=== PATIENT | female | born 1980 | race Caucasian/White ===

== ENCOUNTER 2016-05-04 07:47 | Emergency (ER) | payer OTHER ==
[~2016-05-04] VITALS: Ht 162.6 cm; Wt 113.4 kg
[~2016-05-04 07:47] MED LIST: ABILIFY10 MG PO; ABILIFY20 MG PO; ABILIFY30 MG PO; ATORVASTATIN CA20 MG PO; CELEXA20 MG PO; CITALOPRAM20 MG PO; DEPAKOTE ER500 MG PO; DIVALPROEX SOD250 M1 PO; Divalproex Sodium PO; LIPITOR40 MG PO; MACROBID100 M1 PO; MAG-OX400 MG PO; QUETIAPINE FUM100 M1 PO; SYNTHROID0.1 M1 PO; SYNTHROID0.137 MG PO
--- NOTE | 2016-05-04 07:47 | NUR ---
José galloway in ED - 05/04/16 at [address] BERG EVALUATING PT AT BEDSIDE
[2016-05-04 07:48] VITALS: BP 152/75
--- NOTE | 2016-05-04 07:49 | NUR ---
Note undone in EDM - 05/04/16 at 0951 by MED1 35 YO FEMALE BIB EMS FROM HOME FOR HEADACHE AND HIGH BLOOD PRESSURE. PT STATES HAD SEIZURE 1 TIME AND FELL DOWN ON HER KNEES BEFORE CALLED EMS .PT DENIES N/V/D; SKIN IS PINK/WARM/DRY; AAOX4 WITH EVEN AND UNSTEADY GAIT; LUNGS CLEAR BL; HR TACHECARDIA; PT DENIES ANY FEVER, CP, SOB, OR COUGH AT THIS TIME; PATIENT STATES PAIN OF 10/10 AT THIS TIME; PATIENT POSITIONED FOR COMFORT; HOB ELEVATED; BEDRAILS UP X2; BED DOWN. ER MD MADE AWARE OF PT STATUS.
--- NOTE | 2016-05-04 07:49 | NUR ---
Note undone in EDM - 05/04/16 at 0913 by MED1 35 YO FEMALE BIB EMS FROM HOME FOR HEADACHE AND HIGH BLOOD PRESSURE. PT STATES HAD SEIZURE 1 TIME AND FELL DOWN ON HER KNEES BEFORE CALLED EMS .PT DENIES N/V/D; SKIN IS PINK/WARM/DRY; AAOX4 WITH EVEN AND UNSTEADY GAIT; LUNGS CLEAR BL; HR TACHYCARDIA; PT DENIES ANY FEVER, CP, SOB, OR COUGH AT THIS TIME; PATIENT STATES PAIN OF 10/10 AT THIS TIME; PATIENT POSITIONED FOR COMFORT; HOB ELEVATED; BEDRAILS UP X2; BED DOWN. ER MD MADE AWARE OF PT STATUS.
[2016-05-04] MEDS ORDERED: KETOROLAC 60 MG/2 ML VIAL IM ONE (07:50)
[2016-05-04] MEDS ORDERED: LORazepam 2 MG/ML VIAL IM ONE (07:50)
--- NOTE | 2016-05-04 07:50 | NUR ---
DR BERG EVALUATING PT AT BEDSIDE
--- NOTE | 2016-05-04 07:59 | NUR ---
X RAY AT BEDSIDE
--- NOTE | 2016-05-04 08:04 | NUR ---
LAB AT BEDSIDE
--- NOTE | 2016-05-04 08:04 | NUR ---
PT REFUSED OXYGEN: PULSE OX 96%
--- NOTE | 2016-05-04 08:07 | NUR ---
PT REFUSED CT . NURSING HOME MANAGER NOTIFIED MD BERG. PT AAO X3 ,RESTING ,; WILL CONTINUE TO MONITOR
--- NOTE | 2016-05-04 08:30 | NUR ---
PT C/O " I FEEL HOT AT R FACE". TEMP 98.7
--- NOTE | 2016-05-04 09:09 | NUR ---
Patient appears to be resting comfortably in bed. Respirations even and unlabored. WILL CONTINUE TO MONITOR AT THIS TIME
[2016-05-04] MEDS ORDERED: DIVALPROEX 500 MG TABEC PO ONE (10:05)
--- NOTE | 2016-05-04 11:22 | NUR ---
Patient discharged with v/s stable. Written and verbal after care instructions given and explained. Patient verbalized understanding. Wheel Chair Assisted with by parent. All questions addressed prior to discharge. Advised to follow up with PMD.
[2016-05-04 12:22] VITALS: BP 126/61
== END 2016-05-04 11:22 | disposition home or self-care (01) ==
LOC: MED 07:47
DX: G40.909 Epilepsy, unspecified, not intractable, without status epilepticus (principal); G81.91 Hemiplegia, unspecified affecting right dominant side; R51 Headache; Z86.73 Personal history of transient ischemic attack (TIA), and cerebral infarction without residual deficits
CPT/HCPCS: 36415; 71010; 80053; 84484; 85025; 85610; 85730; 93005; 96372; 99285; J1885; J2060; Q0092

== ENCOUNTER 2016-05-11 15:28 | Emergency (ER) | payer OTHER ==
[~2016-05-11] VITALS: Ht 162.6 cm; Wt 113.4 kg
[2016-05-11 15:44] VITALS: BP 127/68
[2016-05-11] MEDS ORDERED: ACETAMINOPHEN 325 MG TAB PO ONE (15:55)
--- NOTE | 2016-05-11 15:57 | NUR ---
patient brought in by family, patient states she suddenly started having pain in her left leg, left arm, and left foot. TEA BAG PACKER Kat has assessed the patient and placed orders for xray. Patient states she wants to stay in her wheel chair and does not want to lay in gurney.
--- NOTE | 2016-05-11 16:08 | NUR ---
patient transported to xray via wheel chair by civil drafting technician
--- NOTE | 2016-05-11 16:38 | NUR ---
patient returned from xray via wheel chair, she wishes to remain in her wheel chair, family at her side, patient sitting comfortably, no visable distress.
[2016-05-11 17:39] VITALS: BP 144/82
--- NOTE | 2016-05-11 17:40 | NUR ---
Patient discharged with v/s stable. Written and verbal after care instructions given and explained. Patient verbalized understanding. Wheel Chair Assisted with by caregiver. All questions addressed prior to discharge. Advised to follow up with PMD.
== END 2016-05-11 18:09 | disposition home or self-care (01) ==
LOC: MED 15:29
DX: S93.402A Sprain of unspecified ligament of left ankle, initial encounter (principal); S63.502A Unspecified sprain of left wrist, initial encounter; W01.0XXA Fall on same level from slipping, tripping and stumbling without subsequent striking against object, initial encounter; Y93.89 Activity, other specified; Y92.002 Bathroom of unspecified non-institutional (private) residence as the place of occurrence of the external cause; Y99.8 Other external cause status

== ENCOUNTER 2016-09-29 02:50 | Emergency (ER) | payer MEDICAID, OTHER ==
[~2016-09-29] VITALS: Ht 165.1 cm; Wt 108.9 kg
[~2016-09-29 02:50] MED LIST changes: -ABILIFY10 MG PO; -ABILIFY20 MG PO; -ABILIFY30 MG PO; +ARIP10TA28 PO; +ATOR20TA40 PO; -ATORVASTATIN CA20 MG PO; -CELEXA20 MG PO; +CITA20TA15 PO; -CITALOPRAM20 MG PO; -DEPAKOTE ER500 MG PO; -DIVALPROEX SOD250 M1 PO; -LIPITOR40 MG PO; -MACROBID100 M1 PO; -MAG-OX400 MG PO; +MAG400 PO; +QUET100T44 PO; -QUETIAPINE FUM100 M1 PO; +SYN.1 PO; -SYNTHROID0.1 M1 PO; -SYNTHROID0.137 MG PO
[2016-09-29 03:04] VITALS: BP 142/78
--- NOTE | 2016-09-29 04:01 | NUR ---
PT TAKEN TO BED 4
--- NOTE | 2016-09-29 04:22 | NUR ---
36 Y/O F biba for generalized weakness, dizziness. PT STATES SHE WAS SEEN AT [facility] TODAY. MEDS: ABILIFY, CITALOPRAM, DIVALPROEX ER, ATORVASTATIN, QUETIAPINE, LEVOTHYROXIN, ASA.
--- NOTE | 2016-09-29 04:33 | NUR ---
Blood for labwork drawn
[2016-09-29 04:54] LABS: BASOPHILS # (AUTO) 0.2 K/uL (0.00-0.22); BASOPHILS % (AUTO) 1.5 % (0.0-2.0); EOSINOPHILS # (AUTO) 0.1 K/uL (0-0.4); HEMATOCRIT 39.1 % (36-48); HEMOGLOBIN 12.6 g/dL (12.0-16.0); LYMPHOCYTES # (AUTO) 3.3 K/uL (2.5-16.5); LYMPHOCYTES % (AUTO) 31.6 % (20.5-51.1); MEAN CORPUSCULAR HEMOGLOBIN 28 pg (27-31); MEAN CORPUSCULAR HGB CONC 32 g/dL (33-37); MEAN CORPUSCULAR VOLUME 88 fL (80-94); MONOCYTES # (AUTO) 0.3 K/uL (0.8-1.0); MONOCYTES % (AUTO) 2.5 % (1.7-9.3); NEUTROPHILS # (AUTO) 6.4 K/uL (1.8-7.7); NEUTROPHILS % (AUTO) 63.4 % (42.2-75.2); PLATELET COUNT (AUTO) 182 K/uL (140-450); RED BLOOD CELL COUNT(AUTO) 4.47 MIL/uL (4.20-5.40); RED CELL DISTRIBUTION WIDTH 13.5 % (11.6-13.7); WHITE BLOOD COUNT (AUTO) 10.3 K/uL (4.8-10.8)
[2016-09-29 05:09] LABS: ANION GAP 12.2 (8-16); CALCIUM 9.1 mg/dL (8.5-10.1); CARBON DIOXIDE 31.7 mmol/L (21-32); CREATININE 0.8 mg/dL (0.6-1.3); POTASSIUM 3.9 mmol/L (3.5-5.1)
[2016-09-29 05:26] LABS: ALBUMIN 3.6 g/dL (3.4-5.0); THYROID STIMULATING HORMONE 7.49 uIU/mL (0.34-3.74); TOTAL BILIRUBIN 0.3 mg/dL (0.0-1.0); TOTAL PROTEIN, SERUM 7.8 g/dL (6.4-8.2)
--- NOTE | 2016-09-29 05:50 | NUR ---
PT SENT TO [facility] VIA W/C WITH EMT. UA DONE.
--- NOTE | 2016-09-29 05:55 | NUR ---
UA DONE, SENT TO LAB AT 0600
[2016-09-29 06:15] LABS: BILIRUBIN,URINE NEGATIVE (NEGATIVE); BLOOD, URINE NEGATIVE (NEGATIVE); COLOR,URINE YELLOW (YELLOW); LEUKOCYTE ESTERASE ,URINE TRACE (NEGATIVE); NITRITE, URINE NEGATIVE (NEGATIVE); PROTEIN,URINE NEGATIVE (NEGATIVE); UGLUCOSE NEGATIVE (NEGATIVE); UROBILINOGEN,URINE 0.2 EU/dL (0.2 - 1)
--- NOTE | 2016-09-29 06:23 | NUR ---
Dr. Marroquin evaluating patient at bedside.
--- NOTE | 2016-09-29 06:35 | NUR ---
I CALLED PT MOM TO PICK HER UP. ETA 07:30-08:00AM. ER MD AND PT NOTIFIED
--- NOTE | 2016-09-29 06:50 | NUR ---
PT SLEEPING IN BED, ON MONITOR, VSS. NO S/S OF DISTRESS NOTED. FAMILY HAS BEING CALLED TO PICK PT UP, D/T UPCOMING DC.
[2016-09-29 07:06] LABS: APPEARANCE,URINE HAZY (CLEAR)
[2016-09-29 07:07] LABS: BACTERIA,URINE None Seen /HPF (None Seen); RBC,URINE NONE SEEN /HPF (0-5)
--- NOTE | 2016-09-29 07:13 | NUR ---
Pt report given to EMI SEO. Transfer of care at this time.
[2016-09-29 07:41] VITALS: BP 114/73
--- NOTE | 2016-09-29 07:41 | NUR ---
Patient discharged with v/s stable. Written and verbal after care instructions given and explained. Patient verbalized understanding. Wheel Chair Assisted with to car. All questions addressed prior to discharge. Advised to follow up with PMD.
== END 2016-09-29 07:41 | disposition home or self-care (01) ==
LOC: MED 02:50
DX: E03.9 Hypothyroidism, unspecified (principal)
CPT/HCPCS: 36415; 80053; 81001; 81025; 84443; 85025; 87086; 99284

== ENCOUNTER 2017-04-28 18:35 | Emergency (ER) | payer MEDICAID, OTHER ==
[~2017-04-28] VITALS: Ht 162.6 cm; Wt 120.2 kg
[~2017-04-28 18:35] MED LIST changes: +ABI10 PO; -ARIP10TA28 PO
[2017-04-28 19:00] VITALS: BP 148/72
--- NOTE | 2017-04-28 20:23 | NUR ---
José galloway in ED - 04/28/17 at 2040 by MEDRJJ PATIENT LEFT WITHOUT BEING SEEN BY DR. RAMIREZ. NO FURTHER CARE PROVIDED FOR PATIENT.
--- NOTE | 2017-04-28 20:32 | NUR ---
TO MARIO RODRIGUEZ
--- NOTE | 2017-04-28 20:35 | NUR ---
PT BIB FAMILY C/O RIGHT EAR PAIN AND CHILLS X2 DAYS; PT HAS SEEN PMD X2 DAYS AGO AND RX'D AMOXCILLIN SHE STATES SHE IS TAKING. ER MD TO CANDICE. HX CVA, ADD
[2017-04-28 21:50] VITALS: BP 133/68
--- NOTE | 2017-04-28 21:50 | NUR ---
Patient discharged with v/s stable. Written and verbal after care instructions given and explained. Patient alert, oriented and verbalized understanding of instructions. Wheel Chair Assisted with by parent. All questions addressed prior to discharge. ID band removed. Patient advised to follow up with PMD. Rx of CIPROFLOXACIN 0.2% BID given. Patient educated on indication of medication including possible reaction and side effects. Opportunity to ask questions provided and answered.
--- NOTE | 2017-04-28 22:06 | NUR ---
JAVI HOPSON CALLED PT HOME FOR RIDE. NA LVM. PT NOTIFED
--- NOTE | 2017-04-28 22:24 | NUR ---
CALLED PT MOM- PT WAS ALREADY PICKED UP AND AT HOME NOW
== END 2017-04-28 21:50 | disposition home or self-care (01) ==
LOC: MED 18:35
DX: H66.91 Otitis media, unspecified, right ear (principal); H60.91 Unspecified otitis externa, right ear; Z86.73 Personal history of transient ischemic attack (TIA), and cerebral infarction without residual deficits; I10 Essential (primary) hypertension
CPT/HCPCS: 99283

== ENCOUNTER 2017-05-05 17:39 | Emergency (ER) | payer OTHER ==
[~2017-05-05] VITALS: Ht 170.2 cm; Wt 90.7 kg
[2017-05-05 17:43] VITALS: BP 175/90
--- NOTE | 2017-05-05 19:47 | NUR ---
PT TAKEN TO BED 3
--- NOTE | 2017-05-05 19:50 | NUR ---
PATIENT IS A 36 Y/O FEMALE BIB [facility] WHO PRESENTS TO ED C/O LEFT KNEE PAIN. PT STATES, "MY KNEE HURTS." PT REPORTS 10/10 ACHING LEFT KNEE PAIN. PT DENIES CP, SOB, N/V/D. NOTED NO OBVIOUS DEFORMITY OR BLEEDING, BIB WHEELCHAIR. PT AAOX4, RR EVEN/UNLABORED. PT REPOSITIONED FOR COMFORT, BED IN LOWEST POSITION. ER MD DR. MARCUS NOTIFIED. WILL CONTINUE TO MONITOR.
[2017-05-05] MEDS ORDERED: KETOROLAC 60 MG/2 ML VIAL IM ONE (22:35)
[2017-05-05 23:14] VITALS: BP 129/60
== END 2017-05-05 23:14 | disposition home or self-care (01) ==
LOC: MED 17:39
DX: S83.92XA Sprain of unspecified site of left knee, initial encounter (principal); I10 Essential (primary) hypertension; E03.9 Hypothyroidism, unspecified; Z86.73 Personal history of transient ischemic attack (TIA), and cerebral infarction without residual deficits; Z79.899 Other long term (current) drug therapy; X58.XXXA Exposure to other specified factors, initial encounter; Y93.89 Activity, other specified; Y92.89 Other specified places as the place of occurrence of the external cause; Y99.8 Other external cause status
CPT/HCPCS: 81002; 81025; 96372; 99283; J1885

== ENCOUNTER 2017-05-11 01:15 | Emergency (ER) | payer OTHER ==
[~2017-05-11] VITALS: Ht 162.6 cm; Wt 114.3 kg
--- NOTE | 2017-05-11 01:15 | NUR ---
KATHY POWERS. TAKEN TO BED 1
--- NOTE | 2017-05-11 01:15 | NUR ---
Dr. Dickens evaluating patient.
[2017-05-11 01:20] VITALS: BP 131/62
[2017-05-11] MEDS ORDERED: KETOROLAC 30 MG/ML VIAL IVP ONE (01:20)
[2017-05-11] MEDS ORDERED: NACL 0.9% 1,000 ML IV ONE (01:20)
[2017-05-11 01:48] LABS: BASOPHILS # (AUTO) 0.1 K/uL (0.00-0.22); BASOPHILS % (AUTO) 1.8 % (0.0-2.0); EOSINOPHILS # (AUTO) 0.2 K/uL (0-0.4); EOSINOPHILS % (AUTO) 2.5 % (0.0-4.0); HEMATOCRIT 36.3 % (36-48); HEMOGLOBIN 11.9 g/dL (12.0-16.0); LYMPHOCYTES # (AUTO) 2.6 K/uL (2.5-16.5); LYMPHOCYTES % (AUTO) 35.5 % (20.5-51.1); MEAN CORPUSCULAR HEMOGLOBIN 29 pg (27-31); MEAN CORPUSCULAR HGB CONC 33 g/dL (33-37); MEAN CORPUSCULAR VOLUME 88 fL (80-94); MONOCYTES # (AUTO) 0.5 K/uL (0.8-1.0); MONOCYTES % (AUTO) 6.2 % (1.7-9.3); NEUTROPHILS # (AUTO) 3.9 K/uL (1.8-7.7); PLATELET COUNT (AUTO) 131 K/uL (140-450); RED BLOOD CELL COUNT(AUTO) 4.12 MIL/uL (4.20-5.40); RED CELL DISTRIBUTION WIDTH 12.8 % (11.6-13.7); WHITE BLOOD COUNT (AUTO) 7.3 K/uL (4.8-10.8)
[2017-05-11 01:58] LABS: ANION GAP 13.1 (8-16); CARBON DIOXIDE 27.8 mmol/L (21-32); CREATININE 0.7 mg/dL (0.6-1.3); POTASSIUM 3.9 mmol/L (3.5-5.1)
[2017-05-11 02:04] LABS: ALBUMIN 3.1 g/dL (3.4-5.0); TOTAL BILIRUBIN 0.3 mg/dL (0.0-1.0)
--- NOTE | 2017-05-11 02:25 | NUR ---
Patient appears to be resting comfortably in bed. Vital Signs within normal limits. Respirations even and unlabored.
--- NOTE | 2017-05-11 02:26 | NUR ---
PT'S CALLING MOM TO PICK HER UP. ETA NOT 30MINS
--- NOTE | 2017-05-11 02:30 | NUR ---
PT STS " I CALLED MY MOM TO PICK ME UP BUT MY MOM SAID SHE WAS SLEEPING RIGHT NOW."
--- NOTE | 2017-05-11 02:42 | NUR ---
EMI WATKINS CALLED PT HOME-LEFT V-MAIL-TO COME EXECUTIVE SEARCH CONSULTANT PT IN ER [facility]
--- NOTE | 2017-05-11 02:50 | NUR ---
IV removed, catheter intact and site benign. Applied folded 4x4 gauze and tape to stop bleeding.
--- NOTE | 2017-05-11 03:00 | NUR ---
Patient discharged with v/s stable. Written and verbal after care instructions given and explained. Patient alert, oriented and verbalized understanding of instructions. Wheel Chair Assisted with to home. All questions addressed prior to discharge. ID band removed. Patient advised to follow up with PMD. Rx of ULTRAM 50MG given. Patient educated on indication of medication including possible reaction and side effects. Opportunity to ask questions provided and answered.
[2017-05-11 03:01] VITALS: BP 122/71
== END 2017-05-11 03:00 | disposition home or self-care (01) ==
LOC: MED 01:15
DX: H92.02 Otalgia, left ear (principal); I10 Essential (primary) hypertension; E03.9 Hypothyroidism, unspecified; Z86.73 Personal history of transient ischemic attack (TIA), and cerebral infarction without residual deficits; Z79.899 Other long term (current) drug therapy
CPT/HCPCS: 36415; 80053; 82948; 85025; 96361; 96374; 99284; J1885; J7030

== ENCOUNTER 2017-05-17 17:56 | Emergency (ER) | payer OTHER ==
[~2017-05-17] VITALS: Ht 162.6 cm; Wt 118.8 kg
[2017-05-17 18:04] VITALS: BP 143/69
--- NOTE | 2017-05-17 18:35 | NUR ---
PATIENT PRESENTS TO ED CAREGIVER BRINGS IN PT FOR RIGHT WRIST PAIN S/P FALL FROM WHEELCHAIR. MILD SWELLING NOTED. PT REPORT MILD NUMBNESS/TINGLING. RADIAL PULSE PRESENT, COLD TO TOUCH. PT ALSO C/O SOB AND RT EYE DRAINAGE, ON EYE DROPS, BUT NOT HELPING. MED HX: STROKE 2009, ADD, SCHIZOPHRENIA RX: ABILIFY, LEVOTHYROXINE; DENIES N/V/D; SKIN IS PINK/WARM/DRY; AAOX4; LUNGS CLEAR BL; HR EVEN AND REGULAR; PT DENIES ANY FEVER, CP, SOB, OR COUGH AT THIS TIME; PATIENT STATES PAIN OF 10/10 AT THIS TIME; VSS; PATIENT POSITIONED FOR COMFORT; ER MD MADE AWARE OF PT STATUS.
--- NOTE | 2017-05-17 19:15 | NUR ---
REPORT GIVEN TO EMI BARRERA FOR CONTINUATION OF CARE
--- NOTE | 2017-05-17 19:45 | NUR ---
DEVEN BRASWELL EVALUATING PATIENT
--- NOTE | 2017-05-17 20:06 | NUR ---
PT READY FOR DISCHARGE, PT HAS NO RIDE AT THIS TIME, CALLED PT'S MOTHER MARISELA THOMSON WHO STATED SHE WILL BE COMING IN 10 MINS.
[2017-05-17 20:19] VITALS: BP 140/69
--- NOTE | 2017-05-17 20:20 | NUR ---
Patient discharged with v/s stable. Written and verbal after care instructions given and explained. Patient alert, oriented and verbalized understanding of instructions. Wheel Chair Assisted with by parent. All questions addressed prior to discharge. ID band removed. Patient advised to follow up with PMD. Rx of MOTRIN given. Patient educated on indication of medication including possible reaction and side effects. Opportunity to ask questions provided and answered.
[2017-06-07] MEDS ORDERED: QUET200T PO (19:17)
[2017-06-07] MEDS ORDERED: ASPI81EC97 PO (19:17)
== END 2017-05-17 20:20 | disposition home or self-care (01) ==
LOC: MED 17:56
DX: M25.531 Pain in right wrist (principal); Z86.73 Personal history of transient ischemic attack (TIA), and cerebral infarction without residual deficits; E11.9 Type 2 diabetes mellitus without complications
CPT/HCPCS: 73110; 99284

== ENCOUNTER 2017-05-17 20:32 | Emergency (ER) | payer OTHER ==
[~2017-05-17] VITALS: Ht 162.6 cm; Wt 118.8 kg
[2017-05-17 20:43] VITALS: BP 87/57
--- NOTE | 2017-05-17 20:47 | NUR ---
PT TAKEN TO BED 11
[2017-05-17] MEDS ORDERED: NACL 0.9% 1,000 ML IV ONE (20:50)
--- NOTE | 2017-05-17 20:50 | NUR ---
PT IS A 36 Y/O F CAME IN W/C/O FALL ON TUESDAY. PT DENIES ANY TRAUMA TO HEAD. PT STATES SHE FELL ON R WRIST, SWELLING NOTED TO R WRIST, NO DEFORMATIES NOTED. PT IS AAOX4. RR EVEN/UNLABORED. PT DENIES ANY LOC. PT STATES SHE HAS HX OF STROKE, SCHIZOPHRENIA, DM, AND HTN. PT DENIES ANY ALLERGIES
--- NOTE | 2017-05-17 21:04 | NUR ---
Dr. Dickens evaluating patient.
[2017-05-17 21:42] LABS: ANION GAP 17.2 (8-16); CARBON DIOXIDE 25.5 mmol/L (21-32); CREATININE 0.8 mg/dL (0.6-1.3); POTASSIUM 3.7 mmol/L (3.5-5.1)
[2017-05-17 21:44] LABS: BASOPHILS # (AUTO) 0.2 K/uL (0.00-0.22); BASOPHILS % (AUTO) 1.7 % (0.0-2.0); EOSINOPHILS # (AUTO) 0.1 K/uL (0-0.4); HEMATOCRIT 39.2 % (36-48); HEMOGLOBIN 12.8 g/dL (12.0-16.0); MEAN CORPUSCULAR HEMOGLOBIN 29 pg (27-31); MEAN CORPUSCULAR HGB CONC 33 g/dL (33-37); MEAN CORPUSCULAR VOLUME 88 fL (80-94); MONOCYTES # (AUTO) 0.4 K/uL (0.8-1.0); MONOCYTES % (AUTO) 3.8 % (1.7-9.3); NEUTROPHILS # (AUTO) 5.9 K/uL (1.8-7.7); NEUTROPHILS % (AUTO) 62.5 % (42.2-75.2); PLATELET COUNT (AUTO) 182 K/uL (140-450); RED BLOOD CELL COUNT(AUTO) 4.46 MIL/uL (4.20-5.40); RED CELL DISTRIBUTION WIDTH 13.1 % (11.6-13.7); WHITE BLOOD COUNT (AUTO) 9.6 K/uL (4.8-10.8)
[2017-05-17] MEDS ORDERED: KETOROLAC 30 MG/ML VIAL IVP ONE (23:15)
[2017-05-17 23:40] VITALS: BP 155/68
--- NOTE | 2017-05-17 23:40 | NUR ---
Patient discharged with v/s stable. Written and verbal after care instructions given and explained. Patient verbalized understanding. Wheel Chair Assisted with to home. All questions addressed prior to discharge. Advised to follow up with PMD.
== END 2017-05-17 23:40 | disposition home or self-care (01) ==
LOC: MED 20:32
DX: R42 Dizziness and giddiness (principal); E11.9 Type 2 diabetes mellitus without complications; I10 Essential (primary) hypertension; Z86.73 Personal history of transient ischemic attack (TIA), and cerebral infarction without residual deficits; Z79.899 Other long term (current) drug therapy
CPT/HCPCS: 36415; 80048; 81002; 81025; 82948; 85025; 93005; 96361; 96374; 99285; J1885; J7030; 99284

== ENCOUNTER 2017-06-01 14:56 | Emergency (ER) | payer OTHER ==
[~2017-06-01] VITALS: Ht 162.6 cm; Wt 117.9 kg
[2017-06-01 15:01] VITALS: BP 151/69
--- NOTE | 2017-06-01 15:13 | NUR ---
W/C TO B10
--- NOTE | 2017-06-01 15:14 | NUR ---
36/F BIB [facility] WITH C/O BL KNEE PAIN AFTER EXERCISE BY PT YESTERDAY . DENIES INJURY HX; DM, CVA, HTN, SEIZURE, HYPOTHYROIDISMRX; ABILIFY, SYNTHROID--.DENIES N/V/D; SKIN IS PINK/WARM/DRY. PT AMB WITH W/C. LUNGS CLEAR BL; HR EVEN AND REGULAR; PT DENIES ANY FEVER, CP, SOB, OR COUGH AT THIS TIME; PATIENT STATES PAIN OF 10/10 AT THIS TIME; VSS; PATIENT POSITIONED FOR COMFORT; HOB ELEVATED; BEDRAILS UP X2; BED DOWN. ER MD MADE AWARE OF PT STATUS.
[2017-06-01] MEDS ORDERED: KETOROLAC 60 MG/2 ML VIAL IM ONE (15:15)
--- NOTE | 2017-06-01 15:16 | NUR ---
Patient being evaluated by DR TRAN at bedside.
--- NOTE | 2017-06-01 15:17 | NUR ---
José galloway in [facility] - 06/01/17 at 1518 by MED1 W/C TO B10
--- NOTE | 2017-06-01 15:17 | NUR ---
W/C TO B10
--- NOTE | 2017-06-01 15:33 | NUR ---
X RAY AT BEDSIDE.
[2017-06-01 16:45] VITALS: BP 115/61
--- NOTE | 2017-06-01 16:45 | NUR ---
Patient discharged with v/s stable. Written and verbal after care instructions given and explained. Patient alert, oriented and verbalized understanding of instructions. Wheel Chair Assisted with to car. All questions addressed prior to discharge. ID band removed. Patient advised to follow up with PMD. Rx of NAPROSYN given. Patient educated on indication of medication including possible reaction and side effects. Opportunity to ask questions provided and answered.
== END 2017-06-01 16:45 | disposition home or self-care (01) ==
LOC: MED 14:56
DX: M17.0 Bilateral primary osteoarthritis of knee (principal); Z86.73 Personal history of transient ischemic attack (TIA), and cerebral infarction without residual deficits; E11.9 Type 2 diabetes mellitus without complications; I10 Essential (primary) hypertension
CPT/HCPCS: 73562; 82948; 96372; 99284; J1885; Q0092

== ENCOUNTER 2017-07-06 08:35 | Inpatient (IN) | payer OTHER ==
[~2017-07-06] VITALS: Ht 167.6 cm; Wt 126.6 kg
[~2017-07-06 08:35] MED LIST changes: +ASPI81EC97 PO; -QUET100T44 PO; +QUET200T PO
--- NOTE | 2017-07-06 08:37 | NUR ---
PT MARY FOR FATIGUE AFTER TAKING TOO MANY OF HER PRESCRIBED ABILIFY TO BED 11
[2017-07-06 08:41] VITALS: BP 146/76
--- NOTE | 2017-07-06 08:45 | NUR ---
36 YO F BIBA AFTER CONSUMING 5-6 OF HER ABILIFY. PT A&O X 4. GCS 15. RESPIRATIONS EVEN AND UNLABORED AT THIS TIME. LUNG SOUNDS BILATERALLY CLEAR AT THIS TIME. PT IS MUMBLING/SLURRING SOME WORDS INTERMITTENTLY. STATES SHE TOOK HER PILLS BECAUSE SHE IS FEELING DEPRESSED AT HOME. PT ON 5150 HOLD PER [place] [employer]. ABD SOFT, NON-TENDER. PT DENIES N/V/D. REPORTS THAT SHE IS ABLE TO BREATHE BETTER NOW THAN SHE DID ON THE AMBULANCE. O2 SAT 98%. EKG REVEALS SINUS TACHY. ER MD TRAN NOTIFIED OF OT STATUS. SAFETY PRECAUTIONS IN PLACE. PT STRIPPED OF ALL BELONGINGS. PLACED IN BED 11 NEAR NURSES STATION. WILL CONTINUE TO MONITOR. Addendum: 07/06/17 at 1218 [facility] 36 [facility] AFTER CONSUMING 5-6 OF HER ABILIFY. PT A&O X 4. GCS 15. CMS INTACT. RESPIRATIONS EVEN AND UNLABORED AT THIS TIME. LUNG SOUNDS BILATERALLY CLEAR AT THIS TIME. PT IS MUMBLING/SLURRING SOME WORDS INTERMITTENTLY. STATES SHE TOOK HER PILLS BECAUSE SHE IS FEELING DEPRESSED AT HOME. PT ON 5150 HOLD PER [place] [employer]. ABD SOFT, NON-TENDER. PT DENIES N/V/D. REPORTS THAT SHE IS ABLE TO BREATHE BETTER NOW THAN SHE DID ON THE AMBULANCE. O2 SAT 98%. EKG REVEALS SINUS TACHY. ER MD TRAN NOTIFIED OF OT STATUS. SAFETY PRECAUTIONS IN PLACE. PT STRIPPED OF ALL BELONGINGS. PLACED IN BED 11 NEAR NURSES STATION. WILL CONTINUE TO MONITOR.
--- NOTE | 2017-07-06 08:51 | NUR ---
DR TRAN EVALUATING PT AT BEDSIDE
[2017-07-06 09:46] LABS: BASOPHILS # (AUTO) 0.1 K/uL (0.00-0.22); BASOPHILS % (AUTO) 1.6 % (0.0-2.0); EOSINOPHILS # (AUTO) 0.1 K/uL (0-0.4); EOSINOPHILS % (AUTO) 1.2 % (0.0-4.0); HEMATOCRIT 35.1 % (36-48); HEMOGLOBIN 12.1 g/dL (12.0-16.0); LYMPHOCYTES # (AUTO) 1.3 K/uL (2.5-16.5); MEAN CORPUSCULAR HEMOGLOBIN 30 pg (27-31); MEAN CORPUSCULAR HGB CONC 34 g/dL (33-37); MEAN CORPUSCULAR VOLUME 87.1 fL (80-94); MONOCYTES # (AUTO) 0.4 K/uL (0.8-1.0); MONOCYTES % (AUTO) 5.4 % (1.7-9.3); NEUTROPHILS # (AUTO) 5.1 K/uL (1.8-7.7); NEUTROPHILS % (AUTO) 73.8 % (42.2-75.2); PLATELET COUNT (AUTO) 139 K/uL (140-450); RED BLOOD CELL COUNT(AUTO) 4.03 MIL/uL (4.20-5.40); RED CELL DISTRIBUTION WIDTH 12.8 % (11.6-13.7)
[2017-07-06 10:03] LABS: BARBITURATE, URINE NEG. ng/ml (NEG <=200); BENZODIAZEPINE, URINE NEG. ng/mL (NEG <=200); CANNABINOID, URINE NEG. ng/mL (NEG <=50); COCAINE, URINE NEG. ng/mL (NEG <=300); OPIATE, URINE NEG. ng/mL (NEG <=2000); PHENCYCLIDINE SCREEN,URINE NEG. ng/mL (NEG <=25)
[2017-07-06 10:04] LABS: ALBUMIN 3.1 g/dL (3.4-5.0); ANION GAP 10.3 (8-16); ASPARTATE AMINOTRANSFERASE 91 U/L (15-37); CARBON DIOXIDE 29.6 mmol/L (21-32); CHLORIDE 100 mmol/L (98-107); CREATININE 0.7 mg/dL (0.6-1.3); GFR ARICAN-AMERICAN 122 mL/min (>90); GLUCOSE 280 mg/dL (74-106); POTASSIUM 3.9 mmol/L (3.5-5.1); SODIUM SERUM 136 mmol/L (136-145); TOTAL BILIRUBIN 0.3 mg/dL (0.0-1.0); UREA NITROGEN, BLOOD 10 mg/dL (7-18); VALPROIC ACID 32 ug/ml (50-100)
[2017-07-06 10:04] LABS: BILIRUBIN,URINE NEGATIVE (NEGATIVE); BLOOD, URINE NEGATIVE (NEGATIVE); COLOR,URINE YELLOW (YELLOW); LEUKOCYTE ESTERASE ,URINE NEGATIVE (NEGATIVE); NITRITE, URINE NEGATIVE (NEGATIVE); PH,URINE 5.5 (5.0-9.0); UGLUCOSE 3+ (NEGATIVE)
[2017-07-06 10:10] LABS: SALICYLATE < 2.8 mg/dL (2.8-20.0)
[2017-07-06 10:11] LABS: ACETAMINOPHEN < 0.5 ug/ml (10-30)
[2017-07-06 10:20] LABS: RBC,URINE 0-5 (RARE) /HPF (0-5); WBC,URINE 0-5 (RARE) /HPF (0-5)
[2017-07-06 10:21] LABS: APPEARANCE,URINE CLEAR (CLEAR)
--- NOTE | 2017-07-06 10:29 | NUR ---
POISON CONTROL CALLED, MARLENY WAS SPOKEN TO. PT NOT PRESENTING WITH THE S/S REPORTED BY POISON CONTROL AT THIS TIME. NO TREMORS PRESENT AT THIS TIME. WILL CONTINUE TO JESSENIA.
--- NOTE | 2017-07-06 11:30 | NUR ---
PT RESTING PEACEFULLY IN BED AT THIS TIME. WILL CONTINUE TO MONITOR.
--- NOTE | 2017-07-06 14:53 | NUR ---
Called [facility] kayla, s/w Matthew, no vacancy at this time Called [facility], s/w Alonso, no vacancy at this time Called [facility], s/w Ashley, no vacancy at this time Called [facility], s/w Sravani, no vacancy at this time. Called [facility], s/w Flaquita, faxed over paperwork, they will review the chart. awaiting callback. Called [facility], s/w Haylie, faxed over paperwork, they will review the chart. awaiting callback. called [facility], No answer. will attempt again later.
--- NOTE | 2017-07-06 15:26 | NUR ---
[facility] spoke with [facility] packet requested from [facility]. Process for placement of psych patients reviewed. Will continue to provide updates on psych transfer progress as appropriate.
--- NOTE | 2017-07-06 16:25 | NUR ---
Faxed over paperwork to [facility] and [facility] for review. pt on waitlist, awaiting callback for possible placement.
--- NOTE | 2017-07-06 17:00 | NUR ---
PT SOILED THE BED AT THIS TIME. LINENS CHANGED. PT NEEDS MET AT THIS TIME. SAFETY PRECAUTINS IN PLACE. WILL CONTINUE TO MONITOR.
[2017-07-06] MEDS ORDERED: ONDANSETRON 4 MG/2 ML VIAL IVP PRN (17:55)
[2017-07-06] MEDS ORDERED: HYDROmorphone PFS 2 MG/ML SYR IVP PRN (17:55)
[2017-07-06] MEDS ORDERED: LORazepam 0.5 MG TAB PO PRN (18:05)
--- NOTE | 2017-07-06 18:10 | NUR ---
PT SOILED THE BED AGAIN AT THIS TIME. LINENS CHANGED. SAFETY PRECAUTION SIN PLACE. PT NEEDS MET AT THIS TIME. WILL CONTINUE TO MONITOR.
--- NOTE | 2017-07-06 19:20 | NUR ---
Pt transferred to Med/Surg via BED WITH EMI HO.
--- NOTE | 2017-07-06 19:30 | NUR ---
RECEIVED PT FROM ER VIA [employer]. AAOX4. PT IS 51/50. PT IS CALM AND COOPERATIVE. PT HAS NO SUICIDAL IDEATION AT THIS TIME. NO IV LINE. PT ORIENTED TO THE ROOM. ROOM IS SAFE FOR THE PT. 1:1 SITTER AT BEDSIDE. WILL CONTINUE CLOSE MONITORING.
--- NOTE | 2017-07-06 19:35 | NUR ---
Patient will be admitted to care of EMI LARRY. Admited to MST. Will go to room 125 B. Belongings list completed. Pt tolerated transition well.
[2017-07-06 20:00] VITALS: BP 134/70
--- NOTE | 2017-07-06 20:21 | NUR ---
NO CALLBACK FROM FACILITIES WE'VE BEEN IN CONTACT WITH YET. AWAITING REVIEW OF CHART TO BECOME A HOPEFUL PLACEMENT. WILL ENDORSE TO PARCEL POST CARRIER FOR UPDATE IN PLACEMENT.
--- NOTE | 2017-07-06 21:00 | NUR ---
PT IN BED, SLEEPING. NO S/S OF DISTRESS. 1:1 SITTER AT BEDSIDE. SAFETY PRECAUTION IN PLACE.
--- NOTE | 2017-07-06 23:15 | NUR ---
PT C/O ABDOMINAL PAIN. PT HAS NO IV LINE. NO PO PAIN MEDS ORDERED. PAGED DR. WILSON. DR. CRONIN MANAGER DELIVERY. WAITING FOR CALL BACK.
--- NOTE | 2017-07-06 23:25 | NUR ---
RECEIVED CALL FROM DR. CRONIN. MADE AWARE THAT PT C/O ABD PAIN AND HAS NO IV LINE. DR. CRONIN STATED DON'T GIVE ANY MEDS BEC PT IS 5150, ABILIFY OVERDOSE.
[2017-07-07] VITALS: BP 136/70
--- NOTE | 2017-07-07 02:15 | NUR ---
PT SLEEPING BUT AROUSABLE. 1:1 SITTER AT BEDSIDE. NO S/S OF PAIN OR DISCOMFORT. SAFETY PRECAUTION IN PLACE.
--- NOTE | 2017-07-07 05:00 | NUR ---
PT SLEEPING BUT EASILY AROUSABLE. NO S/S O OF DISTRESS. 1:1 SITTER IN THE ROOM.
--- NOTE | 2017-07-07 06:11 | NUR ---
PT AWAKE, RESTING QUIETLY IN BED. PT REFUSED LEVOTHYROXINE.
[2017-07-07] MEDS: LEVOTHYROXINE 0.1 MG TAB PO SCH (06:17)
--- NOTE | 2017-07-07 07:10 | NUR ---
ENDORSED PT TO DAY SHIFT NURSE. PT IN STABLE CONDITION.
--- NOTE | 2017-07-07 07:11 | NUR ---
RECEIVED REPORT FROM NIGHT NURSE AT PT BEDSIDE. PATIENT IS AWAKE AND ALERT. FOLLOWS COMMANDS. DENIES SUICIDAL IDEATION AT THIS TIME. SITTER AT BEDSIDE. CALL LIGHT WITHIN REACH. NO IV ACCESS.
[2017-07-07 08:00] VITALS: BP 150/59
[2017-07-07] MEDS ORDERED: ACETAMINOPHEN 325 MG TAB PO PRN (09:05)
[2017-07-07] MEDS: ECOTRIN 81 MG TABEC PO SCH (09:44)
[2017-07-07] MEDS: ACETAMINOPHEN 325 MG TAB PO PRN ×2 (09:51→20:23)
[2017-07-07] MEDS ORDERED: QUEtiapine FUMARATE 100 MG TAB PO SCH (10:15)
--- NOTE | 2017-07-07 10:15 | NUR ---
PATIENT HAS BEEN SCREENED AND CATEGORIZED LOW NUTRITIONAL RISK DUE TO 5150 STATUS. PATIENT WILL BE SEEN WITHIN 7 DAYS OF ADMISSION 07/13/[address]
--- NOTE | 2017-07-07 11:00 | NUR ---
[facility] has received shift change report. We will continue to place calls to assist with placement.
--- NOTE | 2017-07-07 12:04 | NUR ---
PATIENT ASSISTED TO BEDSIDE COMMODE WITH MAX ASSIST. MODERATE LOOSE BM NOTED. INCONTINENT TO URINE.
--- NOTE | 2017-07-07 13:39 | NUR ---
CM NOTE INITIAL REVIEW FAXED TO [facility] [phone] KAYLIN # [phone]
--- NOTE | 2017-07-07 13:53 | NUR ---
Faxes sent and confirmed to [facility], [facility], [facility], [facility]. Will follow-Up after 14:00 for discharges.
--- NOTE | 2017-07-07 15:42 | NUR ---
PATIENT'S MOTHER AT BEDSIDE. PATIENT SITTING UP AT BEDSIDE. SITTER AT BEDSIDE. NO S/S OF ACUTE DISTRESS NOTED.
[2017-07-07 16:00] VITALS: BP 144/57
--- NOTE | 2017-07-07 16:06 | NUR ---
There are currently no beds available at this time. The packet is currently on file with [facility], [facility], and [facility].
--- NOTE | 2017-07-07 16:09 | NUR ---
THE [facility] HAS REVIEWED FOR PLACEMENT. THE PATIENT IS CURRENTLY ON A WAITLIST WITH [facility]. THERE ARE CURRENTLY NO BEDS AVAILABLE AT THIS TIME.
--- NOTE | 2017-07-07 17:09 | NUR ---
PATIENT SEEN BY DR. SANCHEZ. PATIENT CLEARED OF 5150.
--- NOTE | 2017-07-07 18:12 | NUR ---
DR. CRONIN NOTIFIED OF PATIENT CLEARED FOR PSYCH. NOTIFIED OF PATIENT NOT HAVING A DISCHARGE PLACEMENT UNTIL TOMORROW PER PATIENT'S MOTHER. PER DR. CRONIN, OKAY TO HOLD DISCHARGE AT THIS TIME.
--- NOTE | 2017-07-07 19:33 | NUR ---
SBAR REPORT GIVEN TO NIGHT NURSE AT PT BEDSIDE. NO S/S OF ACUTE DISTRESS NOTED. ALL NEEDS MET THROUGHOUT SHIFT. PATIENT DENIES SUICIDAL IDEATION.
--- NOTE | 2017-07-07 20:08 | NUR ---
RECEIVED PATIENT AWAKE ON BED. CALL LIGHT WITHIN REACH. EXPLAINED PLAN OF CARE. WILL CONTINUE TO MONITOR.
--- NOTE | 2017-07-07 22:51 | NUR ---
SEEN PATIENT ASLEEP ON BED. CALL LIGHT WITHIN REACH. BED IN LOW POSITION. WILL CONTINUE TO MONITOR.
[2017-07-08] VITALS: BP 137/90
--- NOTE | 2017-07-08 02:19 | NUR ---
SEEN PATIENT ASLEEP. CALL LIGHT WITHIN REACH. FALL PRECAUTION IMPLEMENTED. WILL CONTINUE TO MONITOR.
--- NOTE | 2017-07-08 05:09 | NUR ---
AM CARE AND PERINEAL CARE DONE AND CHANGE LINEN . CALL LIGHT WITHIN REACH. WILL CONTINUE TO MONITOR
[2017-07-08] MEDS: LEVOTHYROXINE 0.1 MG TAB PO SCH (06:08)
[2017-07-08 06:38] LABS: BASOPHILS % (AUTO) 0.5 % (0.0-2.0); EOSINOPHILS # (AUTO) 0.1 K/uL (0-0.4); HEMATOCRIT 36.9 % (36-48); HEMOGLOBIN 12.2 g/dL (12.0-16.0); MEAN CORPUSCULAR HEMOGLOBIN 30 pg (27-31); MEAN CORPUSCULAR HGB CONC 33 g/dL (33-37); MEAN CORPUSCULAR VOLUME 89.1 fL (80-94); MONOCYTES # (AUTO) 0.5 K/uL (0.8-1.0); MONOCYTES % (AUTO) 7.5 % (1.7-9.3); NEUTROPHILS # (AUTO) 4.1 K/uL (1.8-7.7); PLATELET COUNT (AUTO) 148 K/uL (140-450); RED BLOOD CELL COUNT(AUTO) 4.14 MIL/uL (4.20-5.40); RED CELL DISTRIBUTION WIDTH 13.9 % (11.6-13.7); WHITE BLOOD COUNT (AUTO) 6.8 K/uL (4.8-10.8)
--- NOTE | 2017-07-08 07:14 | NUR ---
ENDORSEMENT GIVEN TO AM SHIFT NURSE. PATIENT IN STABLE CONDITION.
--- NOTE | 2017-07-08 07:15 | NUR ---
REPORT RECEIVED FROM ARCHITECTURAL DRAFTSMAN NURSE AT BEDSIDE FOR CONTINUITY OF CARE. PATIENT ASLEEP BUT AROUSABLE, NO DISTRESS OR SOB NOTED ON ROOM AIR. PATIENT AMBULATES WITH ASSISTANCE AND USES BEDSIDE COMMODE. NO IV ACCESS. UPDATED THE BOARD, UPDATED PATIENT ON PLAN OF CARE, PATIENT VERBALIZED UNDERSTANDING. SAFETY PRECAUTION IN PLACE, BED IN LOWEST SETTING, CALL LIGHT WITHIN REACH. WILL CONTINUE TO MONITOR PATIENT.
[2017-07-08 07:37] LABS: ALBUMIN 3.2 g/dL (3.4-5.0); ANION GAP 9.9 (8-16); CARBON DIOXIDE 32.2 mmol/L (21-32); CREATININE 0.7 mg/dL (0.6-1.3); POTASSIUM 4.1 mmol/L (3.5-5.1); TOTAL BILIRUBIN 0.3 mg/dL (0.0-1.0)
[2017-07-08 08:00] VITALS: BP 141/77
[2017-07-08] MEDS: ECOTRIN 81 MG TABEC PO SCH (08:49)
--- NOTE | 2017-07-08 08:49 | NUR ---
ADMINISTERED ORDERED MEDICATIONS. PATIENT TOLERATED THEM WELL. BREATHING EVEN AND UNLABORED. NO SIGN OF DISTRESS OR SOB NOTED ON ROOM AIR, PATIENT DENIES PAIN AT THIS TIME. SAFETY PRECAUTION IN PLACE, CALL LIGHT WITHIN REACH, WILL CONTINUE TO MONITOR PATIENT.
[2017-07-08] MEDS ORDERED: ATORVASTATIN 20 MG TAB PO SCH (09:00)
[2017-07-08] MEDS ORDERED: QUEtiapine FUMARATE 100 MG TAB PO SCH (09:00)
--- NOTE | 2017-07-08 10:16 | NUR ---
PATIENT MEDICALLY CLEARED FOR DISCHARGE, MOTHER: MARISELA, CALLED AT [phone], NO ANSWER, COULD NOT LEAVE VOICEMAIL. SISTER: EZE CALLED AT [phone], NO ANSWER, VOICEMAIL ABOUT PATIENT'S UPDATED STATUS LEFT. WILL FOLLOW UP.
--- NOTE | 2017-07-08 12:30 | NUR ---
MOTHER: MARISELA, CALLED AT [phone], NO ANSWER, COULD NOT LEAVE VOICEMAIL. SECURITY WAS CALLED TO BRING PATIENT HER BELONGINGS.
--- NOTE | 2017-07-08 13:50 | NUR ---
MOTHER: MARISELA, CALLED AT [phone], NO ANSWER, COULD NOT LEAVE VOICEMAIL. SISTER, EZE CALLED BACK, INFORMED ABOUT PATIENT'S IMPENDING DISCHARGE, SHE VERBALIZED UNDERSTANDING AND SAID THAT THE MOTHER WILL BE BY AFTER A PARENT CONFERENCE TO TAKE PATIENT TO GO HOME AT 1400.
--- NOTE | 2017-07-08 14:10 | NUR ---
PT'S MOTHER CALLED AT [phone], PATIENT'S BROTHER ANSWER, STATING THAT THEY WERE ON ROUTE TO THE HOSPITAL TO PICK THE PATIENT UP.
--- NOTE | 2017-07-08 14:20 | NUR ---
DISCHARGE INSTRUCTIONS AND EDUCATION GIVEN, PATIENT VERBALIZED UNDERSTANDING. SHE WAS UNABLE TO SIGN ALL OF DISCHARGE PAPERWORK BECAUSE OF HER RIGHT SIDED HEMIPARESIS. STATED THAT HER MOTHER WILL SIGN IT FOR HER WHEN SHE ARRIVES TO PICK HER UP. PATIENT HAS NO IV ACCESS, ID BANDS CUT. PATIENT CHANGED INTO HER OWN CLOTHING BROUGHT BY SECURITY. PATIENT WILL NOW WAIT FOR HER MOTHER TO COME AND TAKE HER HOME. PATIENT SITTING IN CHAIR, IN STABLE CONDITION.
--- NOTE | 2017-07-08 14:30 | NUR ---
PATIENT'S MOTHER ARRIVED ON UNIT, DISCHARGE INSTRUCTION AND EDUCATION GIVEN TO HER, SHE VERBALIZED UNDERSTANDING. PATIENT WHEELED OFF FLOOR ACCOMPANIED BY HER MOTHER AND HER FRIEND. PATIENT TOOK ALL HER BELONGINGS WITH HER. PATIENT IN STABLE CONDITION.
--- NOTE | 2017-07-08 15:07 | NUR ---
CM NOTE CONCURRENT REVIEW FAXED TO [facility] [phone] KAYLIN # [phone]
== END 2017-07-08 14:30 | disposition home or self-care (01) | DRG 812 ==
LOC: MED 08:35 → MMU 18:00 → MTU 07-07 16:47
PROVIDERS: ADMIT Hospitalist; ATTEND Hospitalist
DX: T43.592A Poisoning by other antipsychotics and neuroleptics, intentional self-harm, initial encounter (principal); R45.851 Suicidal ideations; F33.1 Major depressive disorder, recurrent, moderate; Z68.42 Body mass index [BMI] 45.0-49.9, adult; E78.00 Pure hypercholesterolemia, unspecified; E03.9 Hypothyroidism, unspecified; E66.9 Obesity, unspecified; I10 Essential (primary) hypertension; F20.9 Schizophrenia, unspecified; E11.9 Type 2 diabetes mellitus without complications; Z79.82 Long term (current) use of aspirin; Z79.899 Other long term (current) drug therapy; I69.351 Hemiplegia and hemiparesis following cerebral infarction affecting right dominant side; Y92.89 Other specified places as the place of occurrence of the external cause; Z91.5 Personal history of self-harm; Z98.51 Tubal ligation status
CPT/HCPCS: 36415; 80053; 80305; 81001; 81025; 85025; 87081; 93005; 99285; G0480; G0482

== ENCOUNTER 2017-08-08 18:04 | Emergency (ER) | payer OTHER ==
[~2017-08-08] VITALS: Ht 162.6 cm; Wt 117.9 kg
[2017-08-08 18:40] VITALS: BP 134/56
--- NOTE | 2017-08-08 18:43 | NUR ---
PT WHEEL CHAIR ASSITED BY CONSTRUCTION SKILLS TEACHER BACK TO THE LOBBY
--- NOTE | 2017-08-08 19:48 | NUR ---
PT.BIB VIA W/C TO ER BED 11
--- NOTE | 2017-08-08 19:49 | NUR ---
37/F CAME IN ED, C/O N/V/D SINCE LAST NIGHT. PT REPORTS 10/10 CRAMPING MID LOWER ABD PAIN, NONRADIATING, SLIGHT TENDERNESS ON SITE. ABD SOFT, LARGE, PT DENIES TENDERNESS UPPER QUADRANTS AND RLQ AND LLQ. PT REPORTS SLIGHT BURNING WHEN URINATING. HX SCHIZOPHRENIA, DM, HTN, HLD. NKA. PT DENIES FEVER, CP, SOB, COUGH. AOX4, RR EVEN AND UNLABORED.
[2017-08-08 19:56] LABS: BASOPHILS % (AUTO) 0.3 % (0.0-2.0); EOSINOPHILS # (AUTO) 0.1 K/uL (0-0.4); HEMATOCRIT 36.4 % (36-48); HEMOGLOBIN 12.1 g/dL (12.0-16.0); LYMPHOCYTES # (AUTO) 2.1 K/uL (2.5-16.5); LYMPHOCYTES % (AUTO) 25.6 % (20.5-51.1); MEAN CORPUSCULAR HEMOGLOBIN 29 pg (27-31); MEAN CORPUSCULAR HGB CONC 33 g/dL (33-37); MEAN CORPUSCULAR VOLUME 88.1 fL (80-94); MONOCYTES # (AUTO) 0.5 K/uL (0.8-1.0); MONOCYTES % (AUTO) 5.7 % (1.7-9.3); NEUTROPHILS # (AUTO) 5.6 K/uL (1.8-7.7); NEUTROPHILS % (AUTO) 67.4 % (42.2-75.2); PLATELET COUNT (AUTO) 167 K/uL (140-450); RED BLOOD CELL COUNT(AUTO) 4.14 MIL/uL (4.20-5.40); WHITE BLOOD COUNT (AUTO) 8.3 K/uL (4.8-10.8)
[2017-08-08 20:09] LABS: ANION GAP 9.3 (8-16); CARBON DIOXIDE 29.5 mmol/L (21-32); CREATININE 0.8 mg/dL (0.6-1.3); POTASSIUM 3.8 mmol/L (3.5-5.1)
[2017-08-08 20:15] LABS: ALBUMIN 3.2 g/dL (3.4-5.0); TOTAL BILIRUBIN 0.2 mg/dL (0.0-1.0)
[2017-08-08] MEDS ORDERED: KETOROLAC 30 MG/ML VIAL IVP ONE (20:15)
[2017-08-08] MEDS ORDERED: ONDANSETRON 4 MG ODT ONE (21:04)
[2017-08-08] MEDS ORDERED: NACL 0.9% 1,000 ML IV ONE (21:05)
[2017-08-08] MEDS ORDERED: ONDANSETRON 4 MG ODT PO ONE (21:05)
[2017-08-08] MEDS ORDERED: MORPHINE SULFATE 4 MG/ML SYR IVP ONE (21:20)
--- NOTE | 2017-08-08 21:45 | NUR ---
CALLED PT'S MOTHER, MADE HER AWARE THAT PT WILL BE DISCHARGED, PT TO WAIT IN THE LOBBY. PT'S MOTHER TO TAILINGS DAM LABORER PT, VERBALIZED UNDERSTANDING.
[2017-08-08 22:01] VITALS: BP 135/85
--- NOTE | 2017-08-08 22:03 | NUR ---
Patient discharged with v/s stable. Written and verbal after care instructions given and explained. Patient alert, oriented and verbalized understanding of instructions. Wheel Chair Assisted with pt's own wheelchair. All questions addressed prior to discharge. ID band removed. Patient advised to follow up with PMD. Rx of IMODIUM, ZOFRAN, NORCO given. Patient educated on indication of medication including possible reaction and side effects. Opportunity to ask questions provided and answered.
== END 2017-08-08 22:03 | disposition home or self-care (01) ==
LOC: MED 18:04
DX: R11.2 Nausea with vomiting, unspecified (principal); R19.7 Diarrhea, unspecified; R10.9 Unspecified abdominal pain; E11.9 Type 2 diabetes mellitus without complications; I10 Essential (primary) hypertension; Z86.73 Personal history of transient ischemic attack (TIA), and cerebral infarction without residual deficits; Z79.899 Other long term (current) drug therapy; Z79.82 Long term (current) use of aspirin
CPT/HCPCS: 36415; 80053; 81002; 81025; 83690; 85025; 96374; 96375; 99284; J1885; J2270; S0119

== ENCOUNTER 2017-08-09 20:05 | Emergency (ER) | payer OTHER ==
[~2017-08-09] VITALS: Ht 162.6 cm; Wt 117.9 kg
[2017-08-09 20:09] VITALS: BP 145/89
[2017-08-09 21:10] LABS: BASOPHILS % (AUTO) 0.4 % (0.0-2.0); EOSINOPHILS # (AUTO) 0.1 K/uL (0-0.4); EOSINOPHILS % (AUTO) 1.1 % (0.0-4.0); HEMATOCRIT 34.5 % (36-48); HEMOGLOBIN 11.4 g/dL (12.0-16.0); LYMPHOCYTES # (AUTO) 2.3 K/uL (2.5-16.5); LYMPHOCYTES % (AUTO) 27.4 % (20.5-51.1); MEAN CORPUSCULAR HEMOGLOBIN 29 pg (27-31); MEAN CORPUSCULAR HGB CONC 33 g/dL (33-37); MEAN CORPUSCULAR VOLUME 87.9 fL (80-94); MONOCYTES # (AUTO) 0.4 K/uL (0.8-1.0); MONOCYTES % (AUTO) 4.5 % (1.7-9.3); NEUTROPHILS # (AUTO) 5.6 K/uL (1.8-7.7); NEUTROPHILS % (AUTO) 66.6 % (42.2-75.2); PLATELET COUNT (AUTO) 165 K/uL (140-450); RED BLOOD CELL COUNT(AUTO) 3.92 MIL/uL (4.20-5.40); RED CELL DISTRIBUTION WIDTH 13.9 % (11.6-13.7); WHITE BLOOD COUNT (AUTO) 8.4 K/uL (4.8-10.8)
[2017-08-09 21:17] LABS: ANION GAP 11.2 (8-16); CARBON DIOXIDE 30.6 mmol/L (21-32); CREATININE 0.7 mg/dL (0.6-1.3); POTASSIUM 3.8 mmol/L (3.5-5.1)
[2017-08-09 21:50] LABS: TOTAL BILIRUBIN 0.4 mg/dL (0.0-1.0)
[2017-08-09 21:51] LABS: ALBUMIN 3.2 g/dL (3.4-5.0)
[2017-08-09 21:54] LABS: APPEARANCE,URINE CLEAR (CLEAR); BILIRUBIN,URINE NEGATIVE (NEGATIVE); BLOOD, URINE NEGATIVE (NEGATIVE); COLOR,URINE YELLOW (YELLOW); LEUKOCYTE ESTERASE ,URINE NEGATIVE (NEGATIVE); NITRITE, URINE NEGATIVE (NEGATIVE); UGLUCOSE NEGATIVE (NEGATIVE)
[2017-08-10 00:05] VITALS: BP 126/57
== END 2017-08-10 00:15 | disposition home or self-care (01) ==
LOC: MED 20:05
DX: R10.30 Lower abdominal pain, unspecified (principal); E11.9 Type 2 diabetes mellitus without complications; I10 Essential (primary) hypertension; Z86.73 Personal history of transient ischemic attack (TIA), and cerebral infarction without residual deficits; Z79.899 Other long term (current) drug therapy
CPT/HCPCS: 36415; 80053; 81003; 81025; 82150; 83690; 85025; 99285

== ENCOUNTER 2017-08-11 03:55 | Observation (INO) | payer OTHER ==
[~2017-08-11] VITALS: Ht 162.6 cm; Wt 117.5 kg
[2017-08-11 04:00] VITALS: BP 134/53
--- NOTE | 2017-08-11 04:05 | NUR ---
TO BED # 12 VIA W/C, REPORT GIVEN MICHAEL MIDDLETON
--- NOTE | 2017-08-11 04:06 | NUR ---
REPORT GIVEN TO JAZMINE RN
--- NOTE | 2017-08-11 04:17 | NUR ---
37Y/F PT. PRESENTS TO ED WITH C/O CHRONIC ABDOMINAL PAIN WITH N/V. PT. WAS SEEN BY ER MD ON 08/09/17 WITH NEGATIVE TEST RESULT. ALSO WAS [place] ER MD [place] [facility] [place], PT. WAS D/C HOME. PT. STATES PAIN AND N/V EXIST. HX. HTN, DM, CVA. AAO X4, AMBULATORY VIA W/C ASSIST. RESPIRATIONS ROOM AIR, EVEN AND UNLABORED. ABDOMEN SOFT, NON TENDER, ACTIVE BS X 4. VSS, STATES PAIN 07/28. VSS, ER MD MADE AWARE OF PT. STATUS.
--- NOTE | 2017-08-11 05:00 | NUR ---
SISTER EZE DAIGLE REQUESTS TO BE UPDATED ON PT STATUS. [phone]
[2017-08-11 05:26] LABS: BASOPHILS % (AUTO) 0.5 % (0.0-2.0); EOSINOPHILS # (AUTO) 0.1 K/uL (0-0.4); EOSINOPHILS % (AUTO) 1.2 % (0.0-4.0); HEMATOCRIT 35.1 % (36-48); HEMOGLOBIN 11.5 g/dL (12.0-16.0); LYMPHOCYTES # (AUTO) 2.3 K/uL (2.5-16.5); LYMPHOCYTES % (AUTO) 35.6 % (20.5-51.1); MEAN CORPUSCULAR HEMOGLOBIN 29 pg (27-31); MEAN CORPUSCULAR HGB CONC 33 g/dL (33-37); MEAN CORPUSCULAR VOLUME 88.7 fL (80-94); MONOCYTES # (AUTO) 0.5 K/uL (0.8-1.0); MONOCYTES % (AUTO) 7.3 % (1.7-9.3); NEUTROPHILS # (AUTO) 3.5 K/uL (1.8-7.7); NEUTROPHILS % (AUTO) 55.4 % (42.2-75.2); PLATELET COUNT (AUTO) 159 K/uL (140-450); RED BLOOD CELL COUNT(AUTO) 3.96 MIL/uL (4.20-5.40); RED CELL DISTRIBUTION WIDTH 13.9 % (11.6-13.7); WHITE BLOOD COUNT (AUTO) 6.4 K/uL (4.8-10.8)
[2017-08-11 05:39] LABS: APPEARANCE,URINE CLEAR (CLEAR); BILIRUBIN,URINE NEGATIVE (NEGATIVE); BLOOD, URINE NEGATIVE (NEGATIVE); COLOR,URINE YELLOW (YELLOW); LEUKOCYTE ESTERASE ,URINE NEGATIVE (NEGATIVE); NITRITE, URINE NEGATIVE (NEGATIVE); PH,URINE 7.5 (5.0-9.0); UGLUCOSE NEGATIVE (NEGATIVE)
[2017-08-11 05:41] LABS: PROTHROMBIN TIME 11.5 secs (10.8-13.4)
[2017-08-11 05:46] LABS: ALBUMIN 3.3 g/dL (3.4-5.0); ANION GAP 9.7 (8-16); CARBON DIOXIDE 33.1 mmol/L (21-32); CREATININE 0.7 mg/dL (0.6-1.3); POTASSIUM 3.8 mmol/L (3.5-5.1); TOTAL BILIRUBIN 0.3 mg/dL (0.0-1.0)
--- NOTE | 2017-08-11 06:40 | NUR ---
Patient appears to be resting comfortably in bed. Vital Signs within normal limits. Respirations even and unlabored.
[2017-08-11] MEDS ORDERED: ONDANSETRON 4 MG/2 ML VIAL IVP PRN (06:45)
[2017-08-11] MEDS ORDERED: ACETAMINOPHEN 325 MG TAB PO PRN (06:45)
[2017-08-11] MEDS ORDERED: LORazepam 2 MG/ML VIAL IVP PRN (06:45)
[2017-08-11 07:15] VITALS: BP 126/76
--- NOTE | 2017-08-11 07:15 | NUR ---
PATIENT ARRIVED FROM ER BED/GURNEY TO [facility]UST BED. ABLE TO AMBULATE FROM ER BED/GURNEY WITH ASSISTANCE AND UNSTEADY GAIT. AAOX3, CALM, COOPERATIVE, SKIN COLOR APPROPRIATE TO ETHNICITY, WARM TO TOUCH. SKIN IS INTACT. ABDOMEN SOFT, OBESE. LUNGS CTA ON ALL LOBES. IV SITE INTACT, PATENT AND INFUSING IVF PER ORDERS. ORIENTED PATIENT TO ROOM AND CALL LIGHT. SAFETY MEASURES IN PLACE, CALL LIGHT WITHIN REACH, FALL PREVENTIONS IN PLACE, SEIZURE PRECAUTIONS IN PLACE. WILL CONTINUE TO MONITOR.
--- NOTE | 2017-08-11 07:15 | NUR ---
Patient will be admitted to care of . Admited to M/S. Will go to room 120B. Belongings list completed. Report to EMI SAINI.
--- NOTE | 2017-08-11 08:59 | NUR ---
PATIENT HAS BEEN SCREENED AND CATEGORIZED HIGH NUTRITION RISK. PATIENT WILL BE SEEN WITHIN 1-2 DAYS OF ADMISSION. 08/11/17 08/12/[address]
[2017-08-11] MEDS: ARIPiprazole 10 MG TAB PO SCH (09:15)
[2017-08-11] MEDS: PANTOPRAZOLE 40 MG TABEC PO SCH (09:15)
[2017-08-11] MEDS: LEVOTHYROXINE 0.1 MG TAB PO SCH (09:15)
[2017-08-11] MEDS: CITALOPRAM 20 MG TAB PO SCH (09:16)
[2017-08-11] MEDS: DIVALPROEX 500 MG TABEC PO SCH ×2 (09:16→21:19)
[2017-08-11] MEDS: NACL 0.9% 1,000 ML IV SCH ×2 (09:17→16:44)
[2017-08-11] MEDS: HYDROcodone/APAP 5/325 MG 1 TAB TAB PO PRN ×3 (09:17→21:21)
[2017-08-11] MEDS: ATORVASTATIN 20 MG TAB PO SCH (09:17)
--- NOTE | 2017-08-11 09:29 | NUR ---
PATIENT LYING DOWN IN BED WATCHING TV. NO DISTRESS NOTED. ASSISTED PATIENT FROM BSC AND BACK TO BED. PATIENT HAD A BM. SCHEDULED MEDICATIONS DUE GIVEN. IVF STARTED PER MD ORDERS. SAFETY MEASURES IN PLACE, CALL LIGHT WITHIN REACH. WILL CONTINUE TO MONITOR.
--- NOTE | 2017-08-11 09:50 | NUR ---
DR. NASH AT BEDSIDE REVIEWING PLAN OF CARE WITH PATIENT. WILL CONTINUE TO MONITOR.
--- NOTE | 2017-08-11 10:50 | NUR ---
ASSISTED PATIENT TO BSC AND BACK TO BED. NO DISTRESS NOTED. DENIES ANY PAIN AT THIS TIME. CONDITION UNCHANGED. SAFETY MEASURES IN PLACE, CALL LIGHT WITHIN REACH. WILL CONTINUE TO MONITOR.
--- NOTE | 2017-08-11 13:00 | NUR ---
DR. GALINDO AT BEDSIDE REVIEWING PLAN OF CARE WITH PATIENT. WILL CONTINUE TO MONITOR.
--- NOTE | 2017-08-11 13:28 | NUR ---
ASSISTED PATIENT TO BSC AND BACK TO BED. CONDITION UNCHANGED. DENIES ANY PAIN AT THIS TIME. SAFETY MEASURES IN PLACE, CALL LIGHT WITHIN REACH. WILL CONTINUE TO MONITOR.
[2017-08-11] MEDS ORDERED: metroNIDAZOLE 500 MG TAB PO SCH (13:30)
--- NOTE | 2017-08-11 13:36 | NUR ---
PATIENT SITTING IN BED WATCHING TV. CONDITION UNCHANGED. SCHEDULED ANTIBIOTIC MEDICATION GIVEN. WILL CONTINUE TO MONITOR.
--- NOTE | 2017-08-11 14:50 | NUR ---
PATIENT SITTING IN BED WITH FAMILY MEMBER AT BEDSIDE. COMPLAINS OF 6/10 PAIN. NORCO GIVEN PER MD ORDERS. SAFETY MEASURES IN PLACE, CALL LIGHT WITHIN REACH. WILL CONTINUE TO MONITOR.
[2017-08-11 16:00] VITALS: BP 123/61
--- NOTE | 2017-08-11 16:00 | NUR ---
PATIENT LYING DOWN IN BED SLEEPING, AROUSABLE BY VOICE. MOTHER AT BEDSIDE. NO DISTRESS NOTED. DENIES ANY PAIN AT THIS TIME. CONDITION UNCHANGED. SAFETY MEASURES IN PLACE, CALL LIGHT WITHIN REACH. WILL CONTINUE TO MONITOR.
--- NOTE | 2017-08-11 16:26 | NUR ---
Life Claims Examiner Note: I faxed inquiries to the following snf for biodiesel product development manager placement: [facility] : Per Farzaneh, no chcf beds. [facility] : Per Zach, no biodiesel product development manager beds. [facility] , Per Kalina, they might be able to accept patient, she inquired if patient has a skilled need. I spoke with patient's nurse Chris and inquired if PT eval can be ordered, director of case management Nicki made aware.
--- NOTE | 2017-08-11 17:50 | NUR ---
PATIENT LYING IN BED SLEEPING, AROUSABLE BY VOICE. MOTHER AT BEDSIDE. NO DISTRESS NOTED. DENIES ANY PAIN. CONDITION UNCHANGED. SAFETY MEASURES IN PLACE, CALL LIGHT WITHIN REACH. WILL CONTINUE TO MONITOR.
--- NOTE | 2017-08-11 19:20 | NUR ---
NORMAL SALINE IV INFUSING ENDED AT 1919
--- NOTE | 2017-08-11 19:27 | NUR ---
GAVE REPORT TO CORPORATE SALES TRAINER NURSE FOR CONTINUITY OF CARE. PATIENT IN STABLE CONDITION.
--- NOTE | 2017-08-11 19:30 | NUR ---
RECEIVED REPORT AT BED SIDE DURING CHANGE OF SHIFT FROM PARVEEN MIDDLETON DAY SHIFT NURSE FOR TRANSFER OF PT CARE. PT IN STABLE CONDITION . PT IS IN BED WITH BED IN LOWEST POSITION AND SIDE RAILS UP AND CALL ALEXANDER IN REACH. PT HAS SEZUIRE PRECAUTIONS IN PLACE AND HOB UP 45 DEGREES. SHE HAS A BEDSIDE COMMODE NEXT TO BED. PT IS ASLEEP BUT EASILY AROUSABLE TO NAME. SHE HAS A 22G ON HER LEFT F/A AND IS RUNNING NACL AT 100MLS/HR. PT IS ADMITTED FOR ABD PAIN AND IS ON A BLAND SOFT DIET TO REST HER BOWELS. PT LAST BM WAS TODAY, SHE HAS BS ALL 4 QUADS. SHE DENIES N/V. SHE HAD LOOSE STOOL X 1 THIS SHIFT. PT C/O OF 6/10 PAIN IN LOWER ABDOMEN AND WAS GIVEN PRN NORCO.
[2017-08-11] MEDS ORDERED: QUEtiapine FUMARATE 100 MG TAB PO SCH (21:00)
[2017-08-11] MEDS: CIPROFLOXACIN 250 MG TAB PO SCH (21:18)
[2017-08-11] MEDS: metroNIDAZOLE 500 MG TAB PO SCH (21:19)
--- NOTE | 2017-08-11 22:00 | NUR ---
PT IN BED ASLEEP BUT AROUSABLE TO NAME, HER BED IS IN LOW POSITION WITH CALL ALEXANDER IN REACH. PT HAS NO S/S OF PAIN OR DISTRESS AT THIS TIME AND NO S/S OF SEZUIRE ACTIVITY. VITAL SIGNS STABLE. ALLL NEEDS ATTENDED BY STAFF AND FREQUENT CHECKS PROVIDED.
[2017-08-12] VITALS: BP 122/68
--- NOTE | 2017-08-12 01:00 | NUR ---
PT IN LOW BED WITH SIDE RAILS UP AND SEIZURE PRECAUTIONS IN PLACE.. SHE IS ASLEEP BUT AROUSABLE TO NAME, CALL ALEXANDER IN REACH. NO S/S OF SEZUIRE ACTIVITY. IV SITE PATENT AND CONTINUE TO RUN AT 100MLS/HR.
[2017-08-12] MEDS: NACL 0.9% 1,000 ML IV SCH ×2 (02:44→13:18)
[2017-08-12] MEDS: metroNIDAZOLE 500 MG TAB PO SCH ×2 (05:04→12:20)
[2017-08-12] MEDS: HYDROcodone/APAP 5/325 MG 1 TAB TAB PO PRN ×3 (05:06→16:40)
[2017-08-12 06:40] LABS: BASOPHILS % (AUTO) 0.3 % (0.0-2.0); EOSINOPHILS # (AUTO) 0.1 K/uL (0-0.4); EOSINOPHILS % (AUTO) 1.7 % (0.0-4.0); HEMATOCRIT 34.5 % (36-48); HEMOGLOBIN 11.5 g/dL (12.0-16.0); LYMPHOCYTES # (AUTO) 2.3 K/uL (2.5-16.5); LYMPHOCYTES % (AUTO) 36.3 % (20.5-51.1); MEAN CORPUSCULAR HEMOGLOBIN 30 pg (27-31); MEAN CORPUSCULAR HGB CONC 33 g/dL (33-37); MEAN CORPUSCULAR VOLUME 89.5 fL (80-94); MONOCYTES # (AUTO) 0.4 K/uL (0.8-1.0); NEUTROPHILS # (AUTO) 3.5 K/uL (1.8-7.7); NEUTROPHILS % (AUTO) 55.7 % (42.2-75.2); PLATELET COUNT (AUTO) 153 K/uL (140-450); RED BLOOD CELL COUNT(AUTO) 3.86 MIL/uL (4.20-5.40); RED CELL DISTRIBUTION WIDTH 14.1 % (11.6-13.7); WHITE BLOOD COUNT (AUTO) 6.2 K/uL (4.8-10.8)
--- NOTE | 2017-08-12 06:44 | NUR ---
PT IN LOW BED WITH SIDE RAILS UP AND SEZUIRE PRECAUTIONS IN PLACE, NO SEZUIRE ACTIVITY NOTED THIS SHIFT. PT WAS GIVEN NORCO FOR 6/10 PAIN WITH POSITIVE EFFECT. PT IN BED NO S/S OF PAIN OR DISTRESS CALL ALEXANDER IN REACH.
[2017-08-12 07:05] LABS: ALBUMIN 2.8 g/dL (3.4-5.0); ANION GAP 11.4 (8-16); CARBON DIOXIDE 29.6 mmol/L (21-32); CREATININE 0.7 mg/dL (0.6-1.3); TOTAL BILIRUBIN 0.2 mg/dL (0.0-1.0)
--- NOTE | 2017-08-12 07:28 | NUR ---
RECEIVED REPORT FROM NIGHTSHIFT NURSE AT BEDSIDE. PATIENT IS ASLEEP IN SEMI-FOWLERS POSITION. PATIENT IS AROUSABLE TO NAME. PATIENT IS ALERT AND ORIENTED X3. NO DISTRESS NOTED. PATIENT DOES NOT HAVE PAIN AT THIS TIME. SEIZURE PRECAUTIONS IN PLACE. UPDATED BOARD IN PATIENT'S ROOM. PUT CALL LIGHT WITHIN REACH OF PATIENT. INSTRUCTED PATIENT TO CALL IF SHE NEEDS HELP WITH ANYTHING. WILL CONTINUE TO MONITOR PATIENT.
--- NOTE | 2017-08-12 07:30 | NUR ---
REPORT GIVEN TO [place] DAY NURSE AT BEDSIDE FOR TRANSFER OF CARE PT IN STABLE CONDITION.
[2017-08-12 08:00] VITALS: BP 123/70
[2017-08-12] MEDS: CITALOPRAM 20 MG TAB PO SCH (09:04)
[2017-08-12] MEDS: CIPROFLOXACIN 250 MG TAB PO SCH (09:04)
[2017-08-12] MEDS: PANTOPRAZOLE 40 MG TABEC PO SCH (09:04)
[2017-08-12] MEDS: ATORVASTATIN 20 MG TAB PO SCH (09:04)
[2017-08-12] MEDS: LEVOTHYROXINE 0.1 MG TAB PO SCH (09:04)
[2017-08-12] MEDS: ARIPiprazole 10 MG TAB PO SCH (09:05)
[2017-08-12] MEDS: DIVALPROEX 500 MG TABEC PO SCH (09:05)
--- NOTE | 2017-08-12 09:10 | NUR ---
PATIENT TOOK ALL AM MEDICATIONS AT THIS TIME. PATIENT TOLERATED WELL. WILL CONTINUE TO MONITOR PATIENT.
--- NOTE | 2017-08-12 11:47 | NUR ---
PATIENT RESTING IN BED AT THIS TIME. NO COMPLAINTS OF PAIN. WILL CONTINUE TO MONITOR PATIENT.
--- NOTE | 2017-08-12 13:18 | NUR ---
1 LITER BAG FINISHED OF NORMAL SALINE. HUNG A NEW 1 LITER BAG FOR PATIENT.
--- NOTE | 2017-08-12 13:26 | NUR ---
08/12/17 RD INITIAL ASSESSMENT COMPLETED PLEASE REFER TO NUTRITION ASSESSMENT UNDER CARE ACTIVITY FOR ESTIMATED NUTRITIONAL NEEDS. 1. CONTINUE BLAND/SOFT DIET TOLERATED 2. PROVIDED DIABETES EDUCATION. 3. RD TO FOLLOW-UP 2-3 DAYS, HIGH RISK SHELLY HERNÁNDEZ RD
--- NOTE | 2017-08-12 13:30 | NUR ---
PATIENT RESTING IN BED AT THIS TIME. NO DISTRESS NOTED. WILL CONTINUE TO MONITOR PATIENT.
--- NOTE | 2017-08-12 13:52 | NUR ---
FAXED ER REPORT, H&P, CONSULT, PT NOTES AND ORDER FOR SNF TO [facility] [phone] PHONE [phone] KAYLIN
--- NOTE | 2017-08-12 14:32 | NUR ---
Launch Engineer Note: Per Kalina from [facility] , they can accept patient, however, they need authorization from [facility] for physical therapy, Kalina stated they can transition patient to be assistant terminal manager at their facility, she reported bed is available today, returned case inspector Adry made aware. Addendum: 08/12/17 at 1531 by Gill BHATT I met with patient at bedside, informed her [facility] ([place]) has accepted her and she will be transfer there today, she verbalized understanding and is in agreement. Addendum: 08/12/17 at 1543 by Gill Reyes SS I provided Kalina from [facility] with authorization from [facility], she stated patient may go to room 112A, accepting physician Addendum: 08/12/17 at 1547 by Gill Reyes SS Per patient's request I called patient's mother Arlet , Arlet inquired where patient would be transfer to, I provided her with [facility]'s phone number and address.
--- NOTE | 2017-08-12 14:40 | NUR ---
PATIENT RESTING IN BED. PATIENT'S FAMILY AT BEDSIDE. WILL CONTINUE TO MONITOR PATIENT.
--- NOTE | 2017-08-12 15:24 | NUR ---
SPOKE WITH NOELLE FROM [facility] . THE AUTH FOR THE SNF, [facility], IS [id number] . [facility] [id number]. CALLED [facility] AND SET UP TRANSPORT FOR 7P.M. PATIENT WILL BE GOING TO ROOM 112A UNDER DR. STEVE. CHERRY MIDDLETON CHARGE NURSE AWARE. [address] [place] [id number] [facility] PHONE [phone].
[2017-08-12] MEDS ORDERED: CIPR500T4 PO (15:34)
[2017-08-12] MEDS ORDERED: METR250T2 PO (15:34)
[2017-08-12 16:00] VITALS: BP 132/61
--- NOTE | 2017-08-12 16:22 | NUR ---
PATIENT WATCHING TELEVISION AT THIS TIME. NO DISTRESS NOTED. WILL CONTINUE TO MONITOR PATIENT.
--- NOTE | 2017-08-12 18:50 | NUR ---
CALLED REPORT TO MILKA, NURSE AT [facility]. GAVE CALL BACK NUMBER INCASE THEY HAVE QUESTIONS REGARDING PATIENT.
--- NOTE | 2017-08-12 19:49 | NUR ---
NS STOPPED AT 1948.
--- NOTE | 2017-08-12 19:49 | NUR ---
GAVE REPORT TO [employer] EMPLOYEE. DISCONTINUED PATIENT'S IV LINE WITH CATHETER INTACT. REMOVED PATIENT'S IDENTIFICATION BAND. PATIENT SIGNED ALL DISCHARGE INSTRUCTIONS. PATIENT UNDERSTOOD INSTRUCTIONS. PATIENT WAS TAKEN OFF THE UNIT WITH [facility] IN STABLE CONDITION.
== END 2017-08-12 19:49 ==
LOC: MED 03:55 → MTU 06:58
PROVIDERS: ADMIT Internal Medicine; ATTEND Internal Medicine
DX: R10.9 Unspecified abdominal pain (principal); E11.9 Type 2 diabetes mellitus without complications; F32.9 Major depressive disorder, single episode, unspecified; F41.9 Anxiety disorder, unspecified; E03.9 Hypothyroidism, unspecified; R74.0 Nonspecific elevation of levels of transaminase and lactic acid dehydrogenase [LDH]; F31.9 Bipolar disorder, unspecified; Z86.73 Personal history of transient ischemic attack (TIA), and cerebral infarction without residual deficits
CPT/HCPCS: 36415; 80053; 81003; 81025; 83690; 85025; 85610; 85730; 87081; 96360; 96361; 99285; G0378; J7030

== ENCOUNTER 2017-10-28 22:24 | Emergency (ER) | payer OTHER ==
[~2017-10-28] VITALS: Ht 162.6 cm; Wt 113.4 kg
[~2017-10-28 22:24] MED LIST changes: +CIPR500T4 PO; +METR250T2 PO
[2017-10-28 22:40] VITALS: BP 122/71
--- NOTE | 2017-10-28 22:43 | NUR ---
PT TAKEN BY WHEECHAIR TO ER BED 5, SISTER AT BEDSIDE.
--- NOTE | 2017-10-28 22:45 | NUR ---
PT PRESENTED ER WITH C/O PAIN AND BURNING WHILE URINATING. PT STATED SHE SAW HER FAMILY MD THIS WEEK AND WAS DIAGNOSED WITH A UTI. PT RECEIVED MEDICATION. PT FEELS THAT THE MEDICATION IS NOT WORKING. KNA. MEDICAL HX IS STROKE, DM, THYROID PROBLEMS, SCHIZOAFFECTIVE. FAMILY AT BEDSIDE.; SKIN IS PINK/WARM/DRY; AAOX4 USES ASSISTANCE TO AMBULATE BY WHEELCHAIR; PT DENIES ANY FEVER, AT THIS TIME; PATIENT STATES PAIN OF 5/10 AT THIS TIME; VSS; PATIENT POSITIONED FOR COMFORT; HOB ELEVATED; BEDRAILS UP X2; BED DOWN. ER MD MADE AWARE OF PT STATUS.
--- NOTE | 2017-10-28 23:05 | NUR ---
PT IS USING THE RESTROOM. FAMILY ASSISTING HER.
[2017-10-28 23:20] LABS: APPEARANCE,URINE HAZY (CLEAR); BILIRUBIN,URINE 1+ (NEGATIVE); BLOOD, URINE 2+ (NEGATIVE); COLOR,URINE ORANGE (YELLOW); LEUKOCYTE ESTERASE ,URINE 1+ (NEGATIVE); NITRITE, URINE POSITIVE (NEGATIVE); UGLUCOSE TRACE (NEGATIVE)
[2017-10-28] MEDS ORDERED: cefTRIAXone 1,000 MG in LIDOCAINE MPF 1% - 5 mL VIAL 2.1 ML IM ONE (23:20)
[2017-10-28] MEDS ORDERED: IBUPROFEN 600 MG TAB PO ONE (23:25)
[2017-10-28 23:37] VITALS: BP 122/71
--- NOTE | 2017-10-28 23:37 | NUR ---
Patient discharged with v/s stable. Written and verbal after care instructions given and explained. Patient alert, oriented and verbalized understanding of instructions. Ambulatory with steady gait. All questions addressed prior to discharge. ID band removed. Patient advised to follow up with PMD. Rx of CIPRO WAS given. Patient educated on indication of medication including possible reaction and side effects. Opportunity to ask questions provided and answered. Addendum: 10/28/17 at 2343 by [facility] Patient discharged with v/s stable. Written and verbal after care instructions given and explained. Patient alert, oriented and verbalized understanding of instructions. PT WAS WHEELCHAIRED OUT BY FAMILY. All questions addressed prior to discharge. ID band removed. Patient advised to follow up with PMD. Rx of CIPRO WAS given. Patient educated on indication of medication including possible reaction and side effects. Opportunity to ask questions provided and answered.
[2017-10-28 23:38] LABS: RBC,URINE 0-5 (RARE) /HPF (0-5)
== END 2017-10-28 23:37 | disposition home or self-care (01) ==
LOC: MED 22:24
DX: N39.0 Urinary tract infection, site not specified (principal); Z86.73 Personal history of transient ischemic attack (TIA), and cerebral infarction without residual deficits; I10 Essential (primary) hypertension; F25.9 Schizoaffective disorder, unspecified; Z79.2 Long term (current) use of antibiotics; Z79.899 Other long term (current) drug therapy
CPT/HCPCS: 81001; 81025; 87086; 87186; 96372; 99284; J0696; J2001

== ENCOUNTER 2017-11-02 19:58 | Emergency (ER) | payer OTHER ==
[~2017-11-02] VITALS: Ht 162.6 cm; Wt 113.4 kg
[2017-11-02 20:04] VITALS: BP 178/84
--- NOTE | 2017-11-02 20:05 | NUR ---
PT TO LOBBY VIA W/C IN STABLE CONDITION.
--- NOTE | 2017-11-02 21:24 | NUR ---
PT TAKEN TO BED 12
--- NOTE | 2017-11-02 21:51 | NUR ---
PT BIBA FOR ANXIETY S/P VERBAL ALTERCATION W/ BOYFRIEND OVER PHONE. PT STATES SHE WAS AT HOME AND HAD ARGUMENT OVER PHONE, FAMILY WAS HOME. PT STATES SHE STILL FEELS NERVOUS. PT IS LAYING IN BED, VSS, APPEARS TO BE IN NO ACUTE DISTRESS, RR EVEN AND UNLABORED. COMFORT NEEDS MET AT THIS TIME.
--- NOTE | 2017-11-02 23:19 | NUR ---
SPOKE W/ PT SISTER STATES SHE WILL BE PICKING UP PT.
[2017-11-02 23:44] VITALS: BP 132/68
--- NOTE | 2017-11-02 23:45 | NUR ---
Patient discharged with v/s stable. Written and verbal after care instructions given and explained. Patient verbalized understanding. Wheel Chair Assisted with to LOBBY TO WAIT FOR SISTER TO PCIK UP. All questions addressed prior to discharge. Advised to follow up with PMD.
== END 2017-11-02 23:45 | disposition home or self-care (01) ==
LOC: MED 19:58
DX: F41.9 Anxiety disorder, unspecified (principal); I10 Essential (primary) hypertension; Z86.73 Personal history of transient ischemic attack (TIA), and cerebral infarction without residual deficits; Z79.899 Other long term (current) drug therapy; Z79.2 Long term (current) use of antibiotics
CPT/HCPCS: 99284

== ENCOUNTER 2017-11-08 19:57 | Emergency (ER) | payer OTHER ==
[~2017-11-08] VITALS: Ht 162.6 cm; Wt 116.1 kg
[2017-11-08 20:00] VITALS: BP 143/90
--- NOTE | 2017-11-08 20:06 | NUR ---
TO LOBBY, A/W BED VIA W/C, ESEQUIEL STEWART NOTED
--- NOTE | 2017-11-08 20:32 | NUR ---
PT TAKEN TO BED 12
--- NOTE | 2017-11-08 20:58 | NUR ---
Dr. Dickens evaluating patient at bedside.
[2017-11-08] MEDS ORDERED: NACL 0.9% 1,000 ML IV ONE (21:05)
--- NOTE | 2017-11-08 21:08 | NUR ---
PATIENT PRESENTS TO ED WITH C/O FEVER,AN HOUR AGO, WITH LEFT EYE DISCHAGES PT DENIES N/V/D; SKIN IS PINK/WARM/DRY; AAOX4 WITH EVEN AND STEADY GAIT; LUNGS CLEAR BL; HR EVEN AND REGULAR; PATIENT STATES PAIN OF 7/10 AT THIS TIME; VSS; PATIENT POSITIONED FOR COMFORT; HOB ELEVATED; BEDRAILS UP X2; BED DOWN.
[2017-11-08 21:33] LABS: BASOPHILS # (AUTO) 0.1 K/uL (0.00-0.22); BASOPHILS % (AUTO) 1.3 % (0.0-2.0); EOSINOPHILS # (AUTO) 0.1 K/uL (0-0.4); EOSINOPHILS % (AUTO) 0.9 % (0.0-4.0); HEMATOCRIT 38.2 % (36-48); HEMOGLOBIN 12.7 g/dL (12.0-16.0); LYMPHOCYTES # (AUTO) 3.8 K/uL (2.5-16.5); LYMPHOCYTES % (AUTO) 37.5 % (20.5-51.1); MEAN CORPUSCULAR HEMOGLOBIN 29 pg (27-31); MEAN CORPUSCULAR HGB CONC 33 g/dL (33-37); MEAN CORPUSCULAR VOLUME 86.5 fL (80-94); MONOCYTES # (AUTO) 0.5 K/uL (0.8-1.0); MONOCYTES % (AUTO) 4.9 % (1.7-9.3); NEUTROPHILS # (AUTO) 5.6 K/uL (1.8-7.7); NEUTROPHILS % (AUTO) 55.4 % (42.2-75.2); PLATELET COUNT (AUTO) 207 K/uL (140-450); RED BLOOD CELL COUNT(AUTO) 4.41 MIL/uL (4.20-5.40); RED CELL DISTRIBUTION WIDTH 14.1 % (11.6-13.7)
[2017-11-08 21:43] LABS: ANION GAP 9.7 (8-16); CARBON DIOXIDE 32.7 mmol/L (21-32); CREATININE 0.6 mg/dL (0.6-1.3); POTASSIUM 3.4 mmol/L (3.5-5.1)
[2017-11-08 21:49] LABS: ALBUMIN 3.5 g/dL (3.4-5.0); TOTAL BILIRUBIN 0.2 mg/dL (0.0-1.0)
[2017-11-08 21:58] VITALS: BP 137/88
--- NOTE | 2017-11-08 21:59 | NUR ---
Patient discharged with v/s stable. Written and verbal after care instructions given and explained. Patient alert, oriented and verbalized understanding of instructions. Wheel Chair Assisted with to car. All questions addressed prior to discharge. ID band removed. Patient advised to follow up with PMD.NO Rx given. Patient educated on indication of medication including possible reaction and side effects. Opportunity to ask questions provided and answered.
== END 2017-11-08 21:59 | disposition home or self-care (01) ==
LOC: MED 19:57
DX: R19.7 Diarrhea, unspecified (principal); R42 Dizziness and giddiness; R50.9 Fever, unspecified; R30.0 Dysuria; I63.9 Cerebral infarction, unspecified; I10 Essential (primary) hypertension; Z79.82 Long term (current) use of aspirin; Z79.899 Other long term (current) drug therapy; Z86.73 Personal history of transient ischemic attack (TIA), and cerebral infarction without residual deficits
CPT/HCPCS: 36415; 80053; 81002; 81025; 85025; 96360; 99284; J7030

== ENCOUNTER 2017-11-14 15:32 | Emergency (ER) | payer OTHER ==
[~2017-11-14] VITALS: Ht 162.6 cm; Wt 113.4 kg
[2017-11-14] MEDS: HYDROcodone/APAP 5/325 MG 1 TAB TAB PO ONE (16:28)
[2017-11-14 17:22] LABS: PROTHROMBIN TIME 9.5 secs (10.8-13.4)
[2017-11-14 17:26] LABS: ALBUMIN 3.5 g/dL (3.4-5.0); ANION GAP 7.7 (8-16); CARBON DIOXIDE 32.5 mmol/L (21-32); CREATININE 0.8 mg/dL (0.6-1.3); POTASSIUM 3.2 mmol/L (3.5-5.1); TOTAL BILIRUBIN 0.3 mg/dL (0.0-1.0)
[2017-11-14 17:52] LABS: HEMOGLOBIN 13.2 g/dL (12.0-16.0); RED BLOOD CELL COUNT(AUTO) 4.71 MIL/uL (4.20-5.40); WHITE BLOOD COUNT (AUTO) 9.9 K/uL (4.8-10.8)
[2017-11-14 17:53] LABS: HEMATOCRIT 42.2 % (36-48); MEAN CORPUSCULAR HEMOGLOBIN 28 pg (27-31); MEAN CORPUSCULAR HGB CONC 31 g/dL (33-37); MEAN CORPUSCULAR VOLUME 89.6 fL (80-94); PLATELET COUNT (AUTO) 233 K/uL (140-450); RED CELL DISTRIBUTION WIDTH 13.9 % (11.6-13.7)
[2017-11-14 17:54] LABS: BASOPHILS # (AUTO) 0.5 K/uL (0.00-0.22); EOSINOPHILS # (AUTO) 0.1 K/uL (0-0.4); LYMPHOCYTES # (AUTO) 2.2 K/uL (2.5-16.5); MONOCYTES # (AUTO) 0.4 K/uL (0.8-1.0); NEUTROPHILS # (AUTO) 6.7 K/uL (1.8-7.7)
[2017-11-14 19:23] LABS: BARBITURATE, URINE NEG. ng/ml (NEG <=200); BENZODIAZEPINE, URINE NEG. ng/mL (NEG <=200); CANNABINOID, URINE NEG. ng/mL (NEG <=50); COCAINE, URINE NEG. ng/mL (NEG <=300); OPIATE, URINE NEG. ng/mL (NEG <=2000); PHENCYCLIDINE SCREEN,URINE NEG. ng/mL (NEG <=25)
[2017-11-14 19:59] VITALS: BP 113/86
== END 2017-11-14 19:59 | disposition home or self-care (01) ==
LOC: MED 15:32
DX: G44.89 Other headache syndrome (principal); M25.571 Pain in right ankle and joints of right foot; F41.9 Anxiety disorder, unspecified; I10 Essential (primary) hypertension; Z86.73 Personal history of transient ischemic attack (TIA), and cerebral infarction without residual deficits; Z79.899 Other long term (current) drug therapy
CPT/HCPCS: 36415; 70450; 73610; 73630; 80053; 80305; 81025; 85025; 85610; 93005; 99285

== ENCOUNTER 2017-11-16 16:54 | Emergency (ER) | payer OTHER ==
[~2017-11-16] VITALS: Ht 162.6 cm; Wt 116.1 kg
[2017-11-16 17:05] VITALS: BP 131/73
--- NOTE | 2017-11-16 17:08 | NUR ---
PT WHEELCHAIRED BACK TO ER LOBBY WITH CHARGE NURSE, WAITING FOR AN OPEN ER BED.
--- NOTE | 2017-11-16 17:46 | NUR ---
PATIENT WHEELCHAIR ASSISTED TO BED 2.
--- NOTE | 2017-11-16 18:00 | NUR ---
37/F BIB GEOLOGY PROFESSOR C/O 10/28 RT HAND PAIN x TODAY AFTER "BENDING HAND WHILE PUTTING ON ADULT DIAPER". SWELLING NOTED TO RIGHT HAND/WRIST. NO BRUISING NOTED. CAP REFILL < 3 SECONDS AND PULSES +2 TO RIGHT ARM. PT IS AOX4 TO PERSON, PLACE, TIME, AND SITUATION. RR ARE EVEN AND UNLABORED. AWAITING ER MD HARVEY. PT POSITIONED TO COMFORT. ALL NEEDS MET AT THIS TIME. WILL CONTINUE TO MONITOR.
[2017-11-16] MEDS ORDERED: LORazepam 2 MG/ML VIAL IM/IVP ONE (18:30)
[2017-11-16] MEDS ORDERED: diphenhydrAMINE 50 MG CAP PO ONE (18:30)
--- NOTE | 2017-11-16 19:10 | NUR ---
REPORT RECEIVED FROM KATHY LOWE LAYING IN BED, IN PAIN, ER MD MADE AWARE. NO CAREGIVER OR FAMILY AT BEDSIDE AT THIS TIME.
--- NOTE | 2017-11-16 19:10 | NUR ---
Pt report given to Shena MIDDLETON. Transfer of care at this time.
[2017-11-16] MEDS ORDERED: HYDROcodone/APAP 10/325 MG 1 TAB TAB PO ONE (19:30)
[2017-11-16] MEDS ORDERED: KETOROLAC 60 MG/2 ML VIAL IM ONE (19:30)
--- NOTE | 2017-11-16 19:35 | NUR ---
PT CALLED MOTHER , NO ANSWER, WILL CONTINUE TO FOLLOW UP.
--- NOTE | 2017-11-16 19:40 | NUR ---
ATTEMTED TO CALL FAMILY MEMBER FOR ACUPRESSURIST OF PT, NO ANSWER.
--- NOTE | 2017-11-16 19:53 | NUR ---
PT STATES SHE TALKED TO HER MOM AND SHE WILL BE PICKING HER UP, AMY CONTINUE TO FOLLOW UP.
--- NOTE | 2017-11-16 20:00 | NUR ---
PT MOTHER AND SON AT BEDSIDE FOR PICKUP.
[2017-11-16 20:04] VITALS: BP 127/53
--- NOTE | 2017-11-16 20:04 | NUR ---
Note laverne in EDM - 11/16/17 at 2005 by SUKUMAR Patient discharged with v/s stable. Written and verbal after care instructions given and explained. Patient alert, oriented and verbalized understanding of instructions. Ambulatory with steady gait. All questions addressed prior to discharge. ID band removed. Patient advised to follow up with PMD. Rx of BACLOFEN given. Patient educated on indication of medication including possible reaction and side effects. Opportunity to ask questions provided and answered.
--- NOTE | 2017-11-16 20:04 | NUR ---
Patient discharged with v/s stable. Written and verbal after care instructions given and explained. Patient alert, oriented and verbalized understanding of instructions.WHEELCHAIR ASSISTED BY MOTHER TO CAR. All questions addressed prior to discharge. ID band removed. Patient advised to follow up with PMD. Rx of BACLOFEN given. Patient educated on indication of medication including possible reaction and side effects. Opportunity to ask questions provided and answered.
== END 2017-11-16 20:04 | disposition home or self-care (01) ==
LOC: MED 16:54
DX: R25.2 Cramp and spasm (principal); I10 Essential (primary) hypertension; Z79.899 Other long term (current) drug therapy; Z86.73 Personal history of transient ischemic attack (TIA), and cerebral infarction without residual deficits; Z79.82 Long term (current) use of aspirin
CPT/HCPCS: 73130; 96372; 96374; 99284; J1885; J2060; Q0163

== ENCOUNTER 2017-11-22 23:11 | Emergency (ER) | payer OTHER ==
[~2017-11-22] VITALS: Ht 177.8 cm; Wt 127.0 kg
[2017-11-22 23:16] VITALS: BP 150/90
[2017-11-23] MEDS ORDERED: ACETAMINOPHEN EXTRA STRENGTH 500 MG TAB PO ONE (01:50)
[2017-11-23 02:20] VITALS: BP 147/88
== END 2017-11-23 02:22 | disposition home or self-care (01) ==
LOC: MED 23:11
DX: G89.29 Other chronic pain (principal); F20.9 Schizophrenia, unspecified; M25.532 Pain in left wrist; I10 Essential (primary) hypertension; Z86.73 Personal history of transient ischemic attack (TIA), and cerebral infarction without residual deficits; Z79.899 Other long term (current) drug therapy; Z79.1 Long term (current) use of non-steroidal anti-inflammatories (NSAID)
CPT/HCPCS: 73130; 99284

== ENCOUNTER 2017-12-02 07:42 | Emergency (ER) | payer OTHER ==
[~2017-12-02] VITALS: Ht 162.6 cm; Wt 116.1 kg
[2017-12-02 07:45] VITALS: BP 132/62
--- NOTE | 2017-12-02 07:48 | NUR ---
pt annette; in room 8. EMS and RN at bedside.
--- NOTE | 2017-12-02 07:50 | NUR ---
37 y.o female BIBA with c/o abd pain, diarrhea, nausea for x2 days. Pt also has crusting exudate bilaterally in and around her eyes; Pt states these itch and hurt. She states her pain is 10/10 and has occured for x2 days. She took medication yesterday which helped but unable to recall the medication. Pts bowel sounds are active and present all 4 quadrants. Lungs are clear bilaterally with not adventicious sounds. s1s2 present. Pts conjunctivia bilaterally is erythematous. Pt is able to move all extremities with full range of motion. Pt stated that she did not take her medication this morning and unable to recall the names. Pt's hx: CVA, seizures, tetanus, cardiac disorder, schizophrenic, pre-diabetic, thyroid disorder. Pt denies other medical concerns.
--- NOTE | 2017-12-02 08:21 | NUR ---
Dr. Dickens at bedside evaluating pt.
--- NOTE | 2017-12-02 08:25 | NUR ---
Blood Sugar 186
--- NOTE | 2017-12-02 08:53 | NUR ---
RADIOLOGY TAKING PT FOR ABD XRAY
--- NOTE | 2017-12-02 09:12 | NUR ---
PT BACK FROM RADIOLOGY. IN BED; SINGLE SIDE RAIL ELEVATED; BED LOCKED AND IN LOWEST POSITION; CALL LIGHT WITHIN REACH
[2017-12-02 10:18] VITALS: BP 132/62
--- NOTE | 2017-12-02 10:18 | NUR ---
D/C PT HOME; MOTHER IS PICKING HER UP IN THE LOBBY. ANSWERED ALL QUESTIONS; EDUCATED PT ON MEDICATION, RELIEVING FACTORS AND INFORMATION REGARDING ABD PAIN. DISTRIBUTED PAPERWORK AND GAVE PT RX FOR MINERAL OIL (EDUCATION GIVEN). PT DENIED FURTHER QUESTIONS.
== END 2017-12-02 10:18 | disposition home or self-care (01) ==
LOC: MED 07:42
DX: R10.9 Unspecified abdominal pain (principal); R19.7 Diarrhea, unspecified; E11.9 Type 2 diabetes mellitus without complications; I10 Essential (primary) hypertension; E07.9 Disorder of thyroid, unspecified; F20.9 Schizophrenia, unspecified; Z79.899 Other long term (current) drug therapy; Z86.73 Personal history of transient ischemic attack (TIA), and cerebral infarction without residual deficits; Z79.82 Long term (current) use of aspirin
CPT/HCPCS: 74022; 81025; 82948; 99284

== ENCOUNTER 2017-12-07 13:36 | Inpatient (IN) | payer OTHER ==
[~2017-12-07] VITALS: Ht 162.6 cm; Wt 108.4 kg
[2017-12-07 13:58] VITALS: BP 133/66
--- NOTE | 2017-12-07 14:08 | NUR ---
PT TAKEN IN WHEELCHAIR TO BED 1
--- NOTE | 2017-12-07 14:32 | NUR ---
PATIENT PRESENTS TO ED WITH THE CHIEF C/O DIZZINESS. PT STATES DIZZINESS STARTED 3 DAYS AGO. DENIES N/V/D; SKIN IS PINK/WARM/DRY; AAOX4 WITH EVEN AND STEADY GAIT; LUNGS CLEAR BL; HR EVEN AND REGULAR; PT DENIES ANY FEVER, CP, SOB, OR COUGH AT THIS TIME; PATIENT STATES PAIN OF 0/10 AT THIS TIME; VSS; PATIENT POSITIONED FOR COMFORT; HOB ELEVATED; BEDRAILS UP X2; BED DOWN. ER MD MADE AWARE OF PT STATUS.
[2017-12-07] MEDS ORDERED: NACL 0.9% 1,000 ML IV ONE (15:16)
[2017-12-07] MEDS ORDERED: ONDANSETRON 4 MG/2 ML VIAL IVP ONE (15:20)
[2017-12-07] MEDS ORDERED: PROMETHAZINE 25 MG/ML VIAL IM ONE (15:20)
[2017-12-07 15:57] LABS: BASOPHILS # (AUTO) 0.1 K/uL (0.00-0.22); BASOPHILS % (AUTO) 0.8 % (0.0-2.0); EOSINOPHILS # (AUTO) 0.1 K/uL (0-0.4); EOSINOPHILS % (AUTO) 1.3 % (0.0-4.0); HEMATOCRIT 37.3 % (36-48); HEMOGLOBIN 12.4 g/dL (12.0-16.0); LYMPHOCYTES # (AUTO) 3.1 K/uL (2.5-16.5); LYMPHOCYTES % (AUTO) 34.2 % (20.5-51.1); MEAN CORPUSCULAR HEMOGLOBIN 29 pg (27-31); MEAN CORPUSCULAR HGB CONC 33 g/dL (33-37); MEAN CORPUSCULAR VOLUME 86.4 fL (80-94); MONOCYTES # (AUTO) 0.5 K/uL (0.8-1.0); MONOCYTES % (AUTO) 5.3 % (1.7-9.3); NEUTROPHILS # (AUTO) 5.2 K/uL (1.8-7.7); NEUTROPHILS % (AUTO) 58.4 % (42.2-75.2); PLATELET COUNT (AUTO) 171 K/uL (140-450); RED BLOOD CELL COUNT(AUTO) 4.31 MIL/uL (4.20-5.40); RED CELL DISTRIBUTION WIDTH 14.2 % (11.6-13.7)
[2017-12-07 16:11] LABS: ANION GAP 11.6 (8-16); CARBON DIOXIDE 32.8 mmol/L (21-32); CREATININE 0.7 mg/dL (0.6-1.3); POTASSIUM 3.4 mmol/L (3.5-5.1)
[2017-12-07 16:12] LABS: PROTHROMBIN TIME 9.6 secs (10.8-13.4)
[2017-12-07 16:17] LABS: ALBUMIN 3.3 g/dL (3.4-5.0); TOTAL BILIRUBIN 0.3 mg/dL (0.0-1.0)
[2017-12-07] MEDS ORDERED: ONDANSETRON 4 MG/2 ML VIAL IM/IVP PRN (16:35)
[2017-12-07] MEDS ORDERED: DOCUSATE SODIUM 100 MG GELCAP PO PRN (16:35)
[2017-12-07] MEDS ORDERED: ACETAMINOPHEN 325 MG TAB PO PRN (16:35)
[2017-12-07] MEDS: NACL 0.9% 1,000 ML IV SCH (16:35)
--- NOTE | 2017-12-07 17:25 | NUR ---
PT RECEIVED FROM ER,AWAKE,ALERT, TRANSFERRED FROM [facility] TO BED W/ ASSIST. REPORT RECEIVED FROM ER NURSE, VILMA, TELEMONITOR PLACED ON PT.VITALS TAKEN. PT ORIENTED TO ROOM AND UNIT, CALL LIGHT WITHIN REACH. SIDERAILS UP. BED AT LOWEST POSITION. POC REVIEWED. WILL CONTINUE TO MONITOR.
--- NOTE | 2017-12-07 17:25 | NUR ---
PT TRANSFERRED TO TELE UNIT ROOM 107B VIA GURNEY, SAFELY. PT ON STABLE CONDITION. REPORT GIVEN TO TELE NURSE ARLINE MIDDLETON.
[2017-12-07 17:30] VITALS: BP 102/57
[2017-12-07] MEDS ORDERED: POTASSIUM CHLORIDE 10 MEQ TABER PO SCH (17:30)
--- NOTE | 2017-12-07 18:00 | NUR ---
PT ASSISTED TO BATHROOM. PT AMBULATES W/ ASSIST. CLEAN CATCH URINE COLLECTED. MRSA SWAB DONE. SKIN CHECK DONE. FALL PRECAUTION INITIATED.PT RETURN TO BED SITTING UP, EATING DINNER.
[2017-12-07 18:20] LABS: MAGNESIUM 1.4 mg/dL (1.8-2.4); PHOSPHORUS 3.1 mg/dL (2.5-4.9)
[2017-12-07 18:26] LABS: MAGNESIUM 1.1 mg/dL (1.8-2.4)
[2017-12-07] MEDS: LORazepam 1 MG TAB PO PRN (18:26)
--- NOTE | 2017-12-07 18:26 | NUR ---
PT ANXIOUS, RESTLESS, PER DR KEY, PRN ATIVAN GIVEN.
[2017-12-07 18:38] LABS: ACETONE, SERUM NEGATIVE (NEGATIVE)
[2017-12-07 19:20] LABS: CHOL/HDL RATIO 7.1 (1-4.5)
--- NOTE | 2017-12-07 19:22 | NUR ---
REPORT GIVEN TO DRUPAL WEB DEVELOPER NURSE, PT IN STABLE CONDITION. PT SITTING ON BEDSIDE COMMODE WITH SWEAT BOX ATTENDANT.
--- NOTE | 2017-12-07 19:23 | NUR ---
RECEIVED PT IN STABLE CONDITION FROM AM NURSE. PT ON TELE MONITOR. WITH NO S/S OF ANY DISCOMFORT NOR PAIN NOTED AT THIS TIME. IVF INFUSING WELL ON THE RT UPPER ARM #22. CLEAR AND PATENT. HAS EDEMA ON BLE NON PITTING. PLAN OF CAR DISCUSSED AND VERBALIZED UNDERSTANDING. BED ON LOWEST POSITION AND CALL LIGHT WITHIN EASY REACH. ALSO BSC PROVIDED . REINFORCED TO PT THE NEED TO CALL IF NEED TO GET UP AND FOR ANY ASSISTANCE NEEDED. WILL CONTINUE TO MONITOR.
--- NOTE | 2017-12-07 19:45 | NUR ---
US CAROTIC CHAVEZ DONE AT BEDSIDE. WILL FOLLOW UP RESULT.
[2017-12-07 19:48] VITALS: BP 137/74
--- NOTE | 2017-12-07 19:51 | NUR ---
LACTIC ACID 2.9 PER LAB MED TECH. CALLED DR. SALMERON . MADE AWARE . PT ON IVF INFUSING NS 100 ML /HR. WILL WAIT FOR THE REPEAT.
[2017-12-07 19:57] LABS: THYROID STIMULATING HORMONE 0.32 uIU/mL (0.34-3.74)
[2017-12-07] MEDS ORDERED: NON-FORMULARY ITEM (Atorvastatin Calcium 40 MG) PO SCH (21:00)
[2017-12-07] MEDS: QUEtiapine FUMARATE 100 MG TAB PO SCH (21:38)
[2017-12-07] MEDS: DIVALPROEX 500 MG TABEC PO SCH (21:38)
--- NOTE | 2017-12-07 21:45 | NUR ---
MAGNESIUM LEVEL 1.4 DR SALMERON MADE AWARE. SHE SAID WILL TAKE CARE TO REPLACE MAGNESIUM.
[2017-12-07 21:54] LABS: APPEARANCE,URINE CLEAR (CLEAR); BILIRUBIN,URINE NEGATIVE (NEGATIVE); BLOOD, URINE NEGATIVE (NEGATIVE); COLOR,URINE YELLOW (YELLOW); LEUKOCYTE ESTERASE ,URINE NEGATIVE (NEGATIVE); NITRITE, URINE NEGATIVE (NEGATIVE); PH,URINE 7.5 (5.0-9.0); UGLUCOSE NEGATIVE (NEGATIVE)
[2017-12-07 22:09] LABS: BARBITURATE, URINE NEG. ng/ml (NEG <=200); BENZODIAZEPINE, URINE NEG. ng/mL (NEG <=200); CANNABINOID, URINE NEG. ng/mL (NEG <=50); COCAINE, URINE NEG. ng/mL (NEG <=300); OPIATE, URINE NEG. ng/mL (NEG <=2000); PHENCYCLIDINE SCREEN,URINE NEG. ng/mL (NEG <=25)
--- NOTE | 2017-12-07 23:23 | NUR ---
REPEAT LACTIC ACID 2.0
[2017-12-08] VITALS (7 sets, daily range): BP systolic 113–157; BP diastolic 62–97
--- NOTE | 2017-12-08 00:17 | NUR ---
PT FRO CT HEAD W/O CONTRAST. PT REFUSED TO HAVE IT DONE TONIGHT. CALLED RADIOLOGY AND TALKED TO VICENTE, MADE HER AWARE ABOUT PT REFUSING TO HAVE THE TEST DONE .
[2017-12-08] MEDS: HYDROcodone/APAP 7.5/325 MG 1 TAB PO PRN ×4 (01:33→20:21)
[2017-12-08] MEDS ORDERED: MAGNESIUM OXIDE 400 MG TAB PO SCH (02:30)
--- NOTE | 2017-12-08 02:39 | NUR ---
MAG LEVEL 1.4 MAG OXIDE 800 MG PO GIVEN. TOLERATED WELL.
[2017-12-08] MEDS: NACL 0.9% 1,000 ML IV SCH ×3 (02:41→21:50)
--- NOTE | 2017-12-08 06:20 | NUR ---
PREPRESS OPERATOR VICENTE CAME TO ADMINISTRATION VICE PRESIDENT PT FOR THE CT HEAD. PT AGAIN REFUSED TO HAVE IT DONE.
[2017-12-08 06:21] LABS: BASOPHILS % (AUTO) 0.3 % (0.0-2.0); EOSINOPHILS # (AUTO) 0.1 K/uL (0-0.4); EOSINOPHILS % (AUTO) 2.1 % (0.0-4.0); HEMATOCRIT 36.9 % (36-48); HEMOGLOBIN 12.1 g/dL (12.0-16.0); LYMPHOCYTES # (AUTO) 2.5 K/uL (2.5-16.5); LYMPHOCYTES % (AUTO) 43.3 % (20.5-51.1); MEAN CORPUSCULAR HEMOGLOBIN 29 pg (27-31); MEAN CORPUSCULAR HGB CONC 33 g/dL (33-37); MEAN CORPUSCULAR VOLUME 87.5 fL (80-94); MONOCYTES # (AUTO) 0.3 K/uL (0.8-1.0); MONOCYTES % (AUTO) 4.6 % (1.7-9.3); NEUTROPHILS # (AUTO) 2.9 K/uL (1.8-7.7); NEUTROPHILS % (AUTO) 49.7 % (42.2-75.2); PLATELET COUNT (AUTO) 163 K/uL (140-450); RED BLOOD CELL COUNT(AUTO) 4.21 MIL/uL (4.20-5.40); RED CELL DISTRIBUTION WIDTH 14.5 % (11.6-13.7); WHITE BLOOD COUNT (AUTO) 5.8 K/uL (4.8-10.8)
[2017-12-08] MEDS ORDERED: LEVOTHYROXINE 0.1 MG TAB PO SCH (06:30)
[2017-12-08 06:43] LABS: T4 (THYROXINE) 8.5 ug/dL (4.5-12.0)
[2017-12-08 06:47] LABS: ANION GAP 9.5 (8-16); CARBON DIOXIDE 33.7 mmol/L (21-32); CREATININE 0.7 mg/dL (0.6-1.3); POTASSIUM 3.2 mmol/L (3.5-5.1)
--- NOTE | 2017-12-08 07:18 | NUR ---
ENDORSED PT IN STABLE CONDITION TO AM NURSE.
--- NOTE | 2017-12-08 07:19 | NUR ---
RECEIVED REPORT FROM ROCKET ENGINE COMPONENT MECHANIC NURSE AT BEDSIDE FOR CONTINUITY OF CARE. PT ON TELE MONITOR. WITH NO S/S OF ANY DISCOMFORT NOR PAIN NOTED AT THIS TIME. IVF INFUSING WELL ON THE RT UPPER ARM #22. CLEAR AND PATENT. HAS EDEMA ON BLE NON PITTING. PLAN OF CARE DISCUSSED AND PATIENT VERBALIZED UNDERSTANDING. UPDATED BOARD. SAFETY PRECAUTION IN PLACE, BED ON LOWEST POSITION, BED ALARM ON, AND CALL LIGHT WITHIN EASY REACH. ALSO BSC PROVIDED. REINFORCED TO PT THE NEED TO CALL IF NEED TO GET UP AND FOR ANY ASSISTANCE NEEDED. WILL CONTINUE TO MONITOR PATIENT.
[2017-12-08] MEDS: ASPIRIN 81 MG TAB.CHEW PO SCH (09:00)
[2017-12-08] MEDS: LACTOBACILLUS RHAMNOSUS GG 1 EACH CAP PO SCH (09:00)
[2017-12-08] MEDS: metFORMIN 500 MG TAB PO SCH ×2 (09:00→16:53)
[2017-12-08] MEDS ORDERED: ATORVASTATIN 80 MG TAB PO SCH (09:00)
[2017-12-08] MEDS: DIVALPROEX 500 MG TABEC PO SCH ×2 (09:00→20:09)
[2017-12-08] MEDS: ARIPiprazole 10 MG TAB PO SCH (09:00)
[2017-12-08] MEDS: CITALOPRAM 20 MG TAB PO SCH (09:01)
--- NOTE | 2017-12-08 09:02 | NUR ---
ORDERED MEDICATIONS GIVEN. PATIENT TOLERATED THEM WELL. NO SIGNS OF DISTRESS OR SOB NOTED ON ROOM AIR. PATIENT AMBULATED TO BEDSIDE COMMODE, VOIDED. THEN SETTLED COMFORTABLY BACK IN BED. WILL CONTINUE TO MONITOR PATIENT.
--- NOTE | 2017-12-08 09:11 | NUR ---
PATIENT HAS BEEN SCREENED AND CATEGORIZED HIGH NUTRITION RISK. PATIENT WILL BE SEEN WITHIN 1-2 DAYS OF ADMISSION. 12/08/17 12/09/[address]
--- NOTE | 2017-12-08 10:36 | NUR ---
PHYSICAL THERAPY IN WITH THE PATIENT. WILL WAIT FOR THEIR EVALUATION.
--- NOTE | 2017-12-08 10:48 | NUR ---
SPOKE TO PATIENT, SHE AGREED TO CT OF THE HEAD. CALLED RADIOLOGY, SPOKE TO AMBIKA, INFORMED HER OF PATIENT'S AGREEMENT. SHE SAID SHE WILL BE COMING OVER TO TAKE THE PATIENT.
[2017-12-08] MEDS ORDERED: MAG SULF 2000 MG/WATER PREMIX 50 ML IV ONE (10:55)
[2017-12-08] MEDS ORDERED: LACTULOSE 20 GM/30 ML UDC PO SCH (11:00)
[2017-12-08] MEDS ORDERED: POTASSIUM CHLORIDE 10 MEQ TABER PO SCH (11:00)
[2017-12-08] MEDS ORDERED: MECLIZINE 25 MG TAB PO SCH (11:15)
[2017-12-08] MEDS: MECLIZINE 25 MG TAB PO SCH ×2 (12:09→16:53)
--- NOTE | 2017-12-08 12:09 | NUR ---
ORDERED MEDICATIONS GIVEN. PATIENT TOLERATED THEM WELL. NO SIGNS OF DISTRESS OR SOB NOTED ON ROOM AIR. WILL CONTINUE TO MONITOR PATIENT.
[2017-12-08] MEDS: MAGNESIUM SULFATE 1GM in DEXTROSE 5% 100 ML PREMIX IV SCH ×2 (12:10→13:23)
--- NOTE | 2017-12-08 13:23 | NUR ---
PATIENT C/O 6/10 ABDOMINAL PAIN. PRN PAIN MEDICATION GIVEN. PATIENT TOLERATED IT WELL. TECH IN TO DO ABDOMEN US, WILL WAIT FOR RESULTS.
[2017-12-08] MEDS: LORazepam 1 MG TAB PO PRN (14:10)
--- NOTE | 2017-12-08 15:52 | NUR ---
12/08/17 RD INITIAL ASSESSMENT COMPLETED PLEASE REFER TO NUTRITION ASSESSMENT UNDER CARE ACTIVITY FOR ESTIMATED NUTRITIONAL NEEDS. 1. CONTINUE CARDIAC DIET TOLERATED 2. RECOMMEND CCHO [address] TO FOLLOW-UP 5-7 DAYS,LOW RISK SHELLY HERNÁNDEZ, RD
--- NOTE | 2017-12-08 16:05 | NUR ---
PATIENT CURRENTLY GETTING EEG, WILL WAIT FOR RESULTS.
--- NOTE | 2017-12-08 16:53 | NUR ---
ORDERED MEDICATIONS GIVEN. PATIENT TOLERATED THEM WELL. NO SIGNS OF DISTRESS OR SOB NOTED ON ROOM AIR. WILL CONTINUE TO MONITOR PATIENT.
--- NOTE | 2017-12-08 19:28 | NUR ---
RECEIVED REPORT AT BEDSIDE FROM JASPER CASTILLO RN FOR CONTINUITY OF CARE. PT IN STABLE CONDITION.
--- NOTE | 2017-12-08 19:28 | NUR ---
REPORT GIVEN AT BEDSIDE FOR CONTINUITY OF CARE. PATIENT RESTING AND IN STABLE CONDITION.
--- NOTE | 2017-12-08 20:00 | NUR ---
PT IN BED, HOB UP 45%, AOX 1-2 ALL FALLS PRECAUTIONS IN PLACE AND BEDSIDE COMMODE AT BEDSIDE AND CALL ALEXANDER IN REACH. PT SLEEPING IN BED BUT AROUSABLE TO HER NAME BEING CALLED. DINNER STILL AT BEDSIDE, PT AWOKEN AND ASKED IF SHE WANTS TO EAT DINNER, TO WHICH PT REPLIED YES. PT TRAY WAS SET UP AND HER MEAT CUT. PT REQUESTED TO BE FED , HOWEVER PT SAID THAT DOES FEED HERSELF AT HOME. PT ENCOURAGED TO FEED HERSELF TO KEEP HER INDEPENDENCE. PT STARTED EATING HER MEAL WITH OUT FURTHER C/O VOICED. PT ALSO REQUEST SOMETHING TO SLEEP BUT WAS REMINDED THAT SHE WAS SLEEPING THROUGH DINNER AND THAT SHE NEEDED TO STAY AWAKE TO EAT. PT RE-ORIENTED TO PLACE, TIME AND HOUR.
[2017-12-08] MEDS: LACTULOSE 20 GM/30 ML UDC PO SCH (20:09)
[2017-12-08] MEDS: QUEtiapine FUMARATE 100 MG TAB PO SCH (20:10)
[2017-12-08] MEDS: POTASSIUM CHLORIDE 10 MEQ TABER PO SCH (20:10)
--- NOTE | 2017-12-08 21:00 | NUR ---
PT GIVEN ORDERED MEDICATION AND REQUESTED PRN NORCO FOR PAIN 6/10 IN ABDOMEN. B/S NOTED IN ALL 4 QUADS AND LUNGS CLEAR TO AUSCULTATION WILL MONITOR RESIDENT FOR EFFECTIVENESS OF PRN MEDICATION. V/S FOLLOWS T 97.8 P 93 R 20 B/P 138/87 02 94 WITH R/A.
--- NOTE | 2017-12-08 22:00 | NUR ---
NEW BAG OF NS HUNG PER ORDER AND PT IN BED ASLEEP, POSITIVE EFFECT OF PRN PAIN MEDICATION NOTED ALL FALLS PRECAUTIONS IN PLACE.
--- NOTE | 2017-12-08 22:30 | NUR ---
PT SLEEPING NO S/S OF PAIN OR DISTRESS NOTED ALL FALLS PRECAUTIONS IN PLACE.
[2017-12-09] VITALS: BP 112/72
--- NOTE | 2017-12-09 01:00 | NUR ---
PT SLEEPING BUT AROUSABLE TO NAME, PT ASSISTED TO COMMODE, SHE VOIDED AND HAD A BM. PT C/O BLURRY VISION AND IS NOTED WITH A SMALL AMOUNT OF YELLOW DISCHARGE. EYES NOTE SLIGHTLY RED. PT SAID THAT SHE HAD DOUBLE VISION. DR. SALMERON RESIDENT MD NOTIFIED. V/S FOLLOWS T 97.4 P 94 R 20 B/P 112/72 02 91 WITH R/A. BED LOW ALL FALLS PRECAUTIONS IN PLACE AND CALL ALEXANDER IN REACH.
--- NOTE | 2017-12-09 01:25 | NUR ---
DR. SALMERON EVALUATED PT AT BEDSIDE ANOTHER HEAD CT WAS ORDERED WITHOUT CONTRAST.
--- NOTE | 2017-12-09 01:45 | NUR ---
PT AGREED TO THE CT WITHOUT CONTRAST AFTER MUCH ENCOURAGEMENT FROM PRIMARY NURSE . PT WAS ASSISTED TO W/C THEN ESCORTED DOWN TO CT WITH TOP PRINTING PRESS OPERATOR AND CRISTINO FLETCHER. PT WAS BROUGHT DOWN TO CT, USED THE TOILET WITH ASSISTANCE, AND DECLINED THEN DECLINED THE TEST. PT EXPLAINED RISK AND BENEFITS, PT CONTINUED TO DECLINE THE TEST DR. SALMERON MADE AWARE.
[2017-12-09 04:00] VITALS: BP 129/63
--- NOTE | 2017-12-09 04:30 | NUR ---
PT IN BED SLEEPING BUT AROUSABLE TO NAME, PT SAID THAT SHE HAS NO MORE DOUBLE VISION. NO S/S OF PAIN OR DISTRESS NOTED V/S FOLLOWS T 98.2 P 98 R 20 B/P 129/63 02 90% ON R/A.
[2017-12-09] MEDS: LEVOTHYROXINE 0.1 MG, LEVOTHYROXINE 0.05 MG PO SCH ×2 (05:54)
--- NOTE | 2017-12-09 06:16 | NUR ---
PT IN BED ASLEEP BUT AROUSABLE TO NAME GIVEN 6AM MEDS IV SITE ON R F/A FLUSHED PATENT AND N/S RUNNING AT 100MLS/HR. BED LOW CALL ALEXANDER IN REACH AND ALL FALLS PRECAUTIONS IN PLACE. PT DENIES BLURRY OR DOUBLE VISION AT THIS TIME.
[2017-12-09] MEDS ORDERED: LEVOTHYROXINE 0.1 MG TAB PO SCH (06:30)
--- NOTE | 2017-12-09 07:07 | NUR ---
GAVE REPORT TO [place] AT BEDSIDE FOR CONTINUITY OF CARE, PT ASLEEP IN LOW BED, ALL FALLS PRECAUTIONS IN PLACE AND CALL ALEXANDER IN REACH. NO S/S OF PAIN OR DISCOMFORT NOTED.
--- NOTE | 2017-12-09 07:08 | NUR ---
RECEIVED REPORT FROM ROLLER CLEANER NURSE AT BEDSIDE FOR CONTINUITY OF CARE. PT ON TELE MONITOR. WITH NO S/S OF ANY DISCOMFORT NOR PAIN NOTED AT THIS TIME. PATIENT ON 2L O2 VIA NC. IVF INFUSING WELL ON THE RT FORE ARM #22. CLEAR AND PATENT. HAS EDEMA ON BLE NON PITTING. PLAN OF CARE DISCUSSED AND PATIENT VERBALIZED UNDERSTANDING. UPDATED BOARD. SAFETY PRECAUTION IN PLACE, BED ON LOWEST POSITION, BED ALARM ON, AND CALL LIGHT WITHIN EASY REACH. ALSO BSC PROVIDED. REINFORCED TO PT THE NEED TO CALL IF NEED TO GET UP AND FOR ANY ASSISTANCE NEEDED. WILL CONTINUE TO MONITOR PATIENT.
[2017-12-09 08:00] VITALS: BP 123/68
[2017-12-09] MEDS: LACTULOSE 20 GM/30 ML UDC PO SCH ×2 (08:06→20:20)
[2017-12-09] MEDS: metFORMIN 500 MG TAB PO SCH ×2 (08:06→16:04)
--- NOTE | 2017-12-09 08:06 | NUR ---
ORDERED MEDICATION GIVEN. NO SIGN OF DISTRESS OR SOB NOTED ON O2 2L VIA NC. PATIENT TOLERATED THEM WELL. PT C/O 6/10 ABD PAIN, PRN PAIN MED GIVEN. WILL CONTINUE TO MONITOR PATIENT.
[2017-12-09] MEDS: LACTOBACILLUS RHAMNOSUS GG 1 EACH CAP PO SCH (08:07)
[2017-12-09] MEDS: HYDROcodone/APAP 7.5/325 MG 1 TAB PO PRN ×3 (08:07→19:51)
[2017-12-09] MEDS: ASPIRIN 81 MG TAB.CHEW PO SCH (08:07)
[2017-12-09] MEDS: NACL 0.9% 1,000 ML IV SCH ×2 (08:10→16:54)
[2017-12-09 09:37] LABS: ANION GAP 7.6 (8-16); CREATININE 0.6 mg/dL (0.6-1.3); POTASSIUM 3.6 mmol/L (3.5-5.1)
[2017-12-09 09:53] LABS: BASOPHILS % (AUTO) 0.3 % (0.0-2.0); EOSINOPHILS # (AUTO) 0.1 K/uL (0-0.4); EOSINOPHILS % (AUTO) 1.5 % (0.0-4.0); HEMOGLOBIN 11.6 g/dL (12.0-16.0); LYMPHOCYTES # (AUTO) 1.5 K/uL (2.5-16.5); LYMPHOCYTES % (AUTO) 25.1 % (20.5-51.1); MEAN CORPUSCULAR HEMOGLOBIN 29 pg (27-31); MEAN CORPUSCULAR HGB CONC 33 g/dL (33-37); MEAN CORPUSCULAR VOLUME 87.4 fL (80-94); MONOCYTES # (AUTO) 0.3 K/uL (0.8-1.0); MONOCYTES % (AUTO) 4.6 % (1.7-9.3); NEUTROPHILS # (AUTO) 4.1 K/uL (1.8-7.7); NEUTROPHILS % (AUTO) 68.5 % (42.2-75.2); PLATELET COUNT (AUTO) 153 K/uL (140-450); RED BLOOD CELL COUNT(AUTO) 4.01 MIL/uL (4.20-5.40); RED CELL DISTRIBUTION WIDTH 14.5 % (11.6-13.7); WHITE BLOOD COUNT (AUTO) 6.1 K/uL (4.8-10.8)
[2017-12-09] MEDS: CITALOPRAM 20 MG TAB PO SCH (10:03)
[2017-12-09] MEDS: POTASSIUM CHLORIDE 10 MEQ TABER PO SCH (10:03)
[2017-12-09] MEDS: ARIPiprazole 10 MG TAB PO SCH (10:03)
[2017-12-09] MEDS: MECLIZINE 25 MG TAB PO SCH ×3 (10:03→16:04)
[2017-12-09] MEDS: DIVALPROEX 500 MG TABEC PO SCH ×2 (10:04→20:21)
--- NOTE | 2017-12-09 10:04 | NUR ---
ORDERED MEDICATION GIVEN. NO SIGN OF DISTRESS OR SOB NOTED ON O2 2L VIA NC. PATIENT TOLERATED THEM WELL. WILL CONTINUE TO MONITOR PATIENT.
--- NOTE | 2017-12-09 10:21 | NUR ---
DR. KEY IN TO SPEAK TO THE PATIENT. MOTHER AT BEDSIDE. MOTHER MARISELA AGREEABLE TO SNF PLANNING BUT JUST PREFERS THAT PATIENT BE AT A LOCAL FACILITY.
--- NOTE | 2017-12-09 11:01 | NUR ---
PHYSICAL THERAPY WITH THE PATIENT. WILL WAIT FOR HIS EVALUATION.
[2017-12-09 12:00] VITALS: BP 117/63
--- NOTE | 2017-12-09 12:02 | NUR ---
GIANNI FROM [facility] CALLED ABOUT PATIENT AND POSSIBLE DISCHARGE THIS WEEKEND. INFORMED HIM OF HER HISTORY AND HER CURRENT CONDITION. HE VERBALIZED UNDERSTANDING.
--- NOTE | 2017-12-09 12:22 | NUR ---
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 PER IEHP MONISHA EWING PH# [phone], IF PATIENT GOING TO SNF, FOR [facility] [id number]. GABRIEL/JASPER RN AWARE.
--- NOTE | 2017-12-09 13:25 | NUR ---
INFORMED DR. HARPER ABOUT DR. WADSWORTH'S CONSULT. WILL WAIT FOR NEW ORDERS.
--- NOTE | 2017-12-09 15:24 | NUR ---
PATIENT AMBULATED TO [facility]. VOIDED. MOTHER AND SON AT BEDSIDE. UPDATED THEM ON PLAN OF CARE. THEY VERBALIZED UNDERSTANDING. PATIENT NOW RESTING COMFORTABLY IN BED, NO SIGNS OF DISTRESS OR SOB NOTED ON 2L O2 VIA NC. WILL CONTINUE TO MONITOR PATIENT.
--- NOTE | 2017-12-09 15:38 | NUR ---
Appointment Coordinator Note: I faxed inquiry to [facility] [place]. Per Nico from [facility] , they can't accept patient due to psychiatric medication, made aware. I faxed inquiries to [facility] and [facility] per 's request. Per , he will speak with patient's mother Arlet Daniels regarding group home facility placement.
[2017-12-09 16:00] VITALS: BP 120/65
--- NOTE | 2017-12-09 16:03 | NUR ---
PHYSICAL THERAPY CO-SIGN The Physical Therapy Progress Notes documented by Service Now Developer have been reviewed. Reviewed/Co-Signed by: Melida Hutchison PT Documentation Done by:CANDELARIA MOLINA HELMINTHOLOGY TEACHER Addendum: 12/09/17 at 1603 by Melida Hutchison PT Amended: Links added.
--- NOTE | 2017-12-09 16:09 | NUR ---
ORDERED MEDICATION GIVEN. NO SIGN OF DISTRESS OR SOB NOTED ON O2 2L VIA NC. PATIENT TOLERATED THEM WELL. VS WNL. WILL CONTINUE TO MONITOR PATIENT.
--- NOTE | 2017-12-09 16:32 | NUR ---
Balance Wheel Hand Filer Note: Pending response from [facility] Per Ssuan from [facility] , they don't have any beds available at this time.
--- NOTE | 2017-12-09 16:45 | NUR ---
Scalp Treatment Operator Note: Per Chandu from [facility] , they don't have any beds available today but they will have one tomorrow 12/09/17, made aware. Per Chandu, he will contact our nurses' station tomorrow and provide patient's nurse with room number patient can go to at their facility and also accepting physician.
--- NOTE | 2017-12-09 17:30 | NUR ---
LORAINE MARQUEZ FROM [facility] IN TO SPEAK TO THE PATIENT. WILL WAIT FOR HER EVALUATION.
--- NOTE | 2017-12-09 19:35 | NUR ---
REPORT GIVEN AT BEDSIDE TO INDUCTION MACHINE OPERATOR NURSE FOR CONTINUITY OF CARE. PATIENT IN STABLE CONDITION.
--- NOTE | 2017-12-09 19:40 | NUR ---
RECEIVED PATIENT AWAKE LYING ON BED. FALL PRECAUTION APPLIED. EXPLAIN PLAN OF CARE AND VERBALIZED UNDERSTANDING. CALL LIGHT WITHIN REACH. WILL CONTINUE TO MONITOR.
[2017-12-09 20:00] VITALS: BP 121/57
[2017-12-09] MEDS: QUEtiapine FUMARATE 100 MG TAB PO SCH (20:21)
--- NOTE | 2017-12-09 21:00 | NUR ---
BS TAKEN AND RECORDED. INSULIN GIVEN PER SLIDING SCALE. V/S TAKEN AND RECORDED. NO SIGN OF DISTRESS NOTED. ALL NEEDS ATTENDED. WILL CONTINUE TO MONITOR.
--- NOTE | 2017-12-09 21:00 | NUR ---
SCHEDULE MEDICATION GIVEN TOLERATED WELL. WILL CONTINUE TO MONITOR.
[2017-12-10] VITALS: BP 108/66
--- NOTE | 2017-12-10 00:05 | NUR ---
V/S TAKEN AND RECORDED. FALL PRECAUTION APPLIED. NO S/S OF DISTRESS NOTED. WILL CONTINUE TO MONITOR.
[2017-12-10 04:00] VITALS: BP 134/59
--- NOTE | 2017-12-10 04:05 | NUR ---
SEEN PATIENT ASLEEP ON BED. NO S/S OF DISTRESS NOTED. V/S TAKEN AND RECORDED. WILL CONTINUE TO MONITOR.
[2017-12-10] MEDS: NACL 0.9% 1,000 ML IV SCH (04:35)
[2017-12-10] MEDS: LEVOTHYROXINE 0.1 MG, LEVOTHYROXINE 0.05 MG PO SCH ×2 (06:42)
[2017-12-10 07:13] LABS: BASOPHILS % (AUTO) 0.2 % (0.0-2.0); EOSINOPHILS # (AUTO) 0.1 K/uL (0-0.4); EOSINOPHILS % (AUTO) 1.5 % (0.0-4.0); HEMATOCRIT 35.6 % (36-48); HEMOGLOBIN 11.5 g/dL (12.0-16.0); LYMPHOCYTES # (AUTO) 2.2 K/uL (2.5-16.5); MEAN CORPUSCULAR HEMOGLOBIN 29 pg (27-31); MEAN CORPUSCULAR HGB CONC 32 g/dL (33-37); MEAN CORPUSCULAR VOLUME 88.2 fL (80-94); MONOCYTES # (AUTO) 0.4 K/uL (0.8-1.0); MONOCYTES % (AUTO) 6.3 % (1.7-9.3); NEUTROPHILS # (AUTO) 3.1 K/uL (1.8-7.7); PLATELET COUNT (AUTO) 147 K/uL (140-450); RED BLOOD CELL COUNT(AUTO) 4.03 MIL/uL (4.20-5.40); RED CELL DISTRIBUTION WIDTH 14.6 % (11.6-13.7); WHITE BLOOD COUNT (AUTO) 5.7 K/uL (4.8-10.8)
--- NOTE | 2017-12-10 07:15 | NUR ---
ENDORSEMENT GIVEN TO AM SHIFT NURSE AT BEDSIDE FOR CONTINUITY OF CARE. PATIENT IN STABLE CONDITION.
--- NOTE | 2017-12-10 07:20 | NUR ---
ENDORSEMENT GIVEN TO AM SHIFT NURSE AT BEDSIDE FOR CONTINUITY OF CARE. PATIENT IN STABLE CONDITION.
--- NOTE | 2017-12-10 07:21 | NUR ---
RECEIVED REPORT FROM PM NURSE AT BEDSIDE. PT SLEEPING AT THIS TIME. PT WAITING FOR PLACEMENT PER PM NURSE. PT HAS RT FA IV ACCESS 22 G, IVF INFUSING AT 100ML/HR. SKIN IS INTACT. USES BEDSIDE COMMODE. BED AT LOWEST POSITION. CALL LIGHT WITHIN PT REACH. BED ALARM ON. NO SIGN OF DISTRESS NOTED. WILL CONTINUE TO MONITOR PT.
[2017-12-10 07:23] LABS: MAGNESIUM 1.8 mg/dL (1.8-2.4); PHOSPHORUS 3.1 mg/dL (2.5-4.9)
[2017-12-10 07:27] LABS: ANION GAP 7.8 (8-16); CARBON DIOXIDE 33.7 mmol/L (21-32); CREATININE 0.5 mg/dL (0.6-1.3); POTASSIUM 3.5 mmol/L (3.5-5.1)
[2017-12-10 08:04] VITALS: BP 133/98
[2017-12-10] MEDS: CITALOPRAM 20 MG TAB PO SCH (08:33)
[2017-12-10] MEDS: LACTULOSE 20 GM/30 ML UDC PO SCH (08:33)
[2017-12-10] MEDS: ASPIRIN 81 MG TAB.CHEW PO SCH (08:33)
[2017-12-10] MEDS: DIVALPROEX 500 MG TABEC PO SCH (08:34)
[2017-12-10] MEDS: LACTOBACILLUS RHAMNOSUS GG 1 EACH CAP PO SCH (08:34)
[2017-12-10] MEDS: MECLIZINE 25 MG TAB PO SCH ×2 (08:34→13:00)
[2017-12-10] MEDS: metFORMIN 500 MG TAB PO SCH (08:35)
[2017-12-10] MEDS: ARIPiprazole 10 MG TAB PO SCH (08:35)
--- NOTE | 2017-12-10 08:39 | NUR ---
ADMINISTERED MEDS ORDERED TO PT. TOLERATED WELL. PT INFORMED HER THAT SHE IS GOING TO [place] TODAY. WAITING FOR CM TO FIND THE TIME AND CONFIRM WITH THE PLACEMENT PLACE WHERE SHE WILL BE GOING. VERBALIZED UNDERSTANDING. DENIES ANY PAIN. WILL CONTINUE TO MONITOR PT.
[2017-12-10] MEDS ORDERED: LEVO0.155 PO (08:57)
[2017-12-10] MEDS ORDERED: DIVA500E2 PO (08:57)
[2017-12-10] MEDS ORDERED: MECL-272 PO (08:57)
[2017-12-10] MEDS ORDERED: METF500T PO (08:57)
--- NOTE | 2017-12-10 10:07 | NUR ---
CHECKED ON PT . COMPLAINING OF ABDOMINAL PAIN. REFUSED NORCO. MD NOTIFIED. WILL ORDER LIQUID MEDS FOR PAIN. WILL ADMINISTER MEDS ORDERS ARE AVAILABLE. INTERNAL COMBUSTION ENGINE ASSEMBLER AT BEDSIDE , HELPED CHANGING PT. PT HAS LOOSE BM. WILL CONTINUE TO MONITOR PT.
[2017-12-10] MEDS ORDERED: KETOROLAC 15 MG/ML VIAL IVP SCH (11:00)
--- NOTE | 2017-12-10 11:00 | NUR ---
CALLED [facility]. REPORT GIVEN TO EMI OROSCO ACCEPTING NURSE. INFORMED HE PT BILLET ASSEMBLER TIME [id number], BY [facility]. NO ABX. PT IN STABLE CONDITION. UPDATED HER WITH VS. EXCHANGE PHONE NUMBER [phone] FOR ANY ADDITIONAL QUESTION. VERBALIZED UNDERSTANDING. WILL CONTINUE TO MONITOR PT.
--- NOTE | 2017-12-10 11:30 | NUR ---
CHECKED ON PT. SLEEPING ON HER BED. NO SIGN OF DISTRESS. DENIES ANY PAIN . INFORMED THAT HER BUSINESS PROCESS ANALYST TIME IS 1300 -1400. VERBALIZED UNDERSTANDING. ALL SAFETY MEASURE IN PLACE. WILL CONTINUE TO MONITOR PT.
[2017-12-10 12:00] VITALS: BP 125/81
--- NOTE | 2017-12-10 12:21 | NUR ---
Journalism Instructor Notes: I called [facility] at and I spoke to Hafsa from admissions stating that patient has been accepted and they have a bed ready for her today. Per Hafsa Patient will be placed at room 225B with accepting Dr. Galo. Per Hafsa she will be setting up Patient's transport with to their facility between 1:00PM-2:00PM. I thanked her for her information.
--- NOTE | 2017-12-10 13:30 | NUR ---
PT LEFT FOR [facility] UNDER DR. ARZOLA. PT WAS TRANSPORTED BY [facility]. PT IN STABLE CONDITION. SENT ALL PT BELONGINGS AND DC PAPER WITH TRANSPORT TEAM. CHARGE NURSE AWARE.
== END 2017-12-10 13:35 | DRG 74 ==
LOC: MED 13:36 → MTU 16:41
PROVIDERS: ADMIT General Practice; ATTEND General Practice
PROC: 4A00X4Z Measurement of Central Nervous Electrical Activity, External Approach (ICD-10-PCS; principal; 2017-12-09)
DX: G90.9 Disorder of the autonomic nervous system, unspecified (principal); E44.1 Mild protein-calorie malnutrition; F33.3 Major depressive disorder, recurrent, severe with psychotic symptoms; I69.351 Hemiplegia and hemiparesis following cerebral infarction affecting right dominant side; Z68.41 Body mass index [BMI] 40.0-44.9, adult; H81.10 Benign paroxysmal vertigo, unspecified ear; E87.6 Hypokalemia; E83.42 Hypomagnesemia; E78.5 Hyperlipidemia, unspecified; K72.90 Hepatic failure, unspecified without coma; I10 Essential (primary) hypertension; E03.9 Hypothyroidism, unspecified; R74.0 Nonspecific elevation of levels of transaminase and lactic acid dehydrogenase [LDH]; F41.9 Anxiety disorder, unspecified; E11.65 Type 2 diabetes mellitus with hyperglycemia; K76.0 Fatty (change of) liver, not elsewhere classified; R16.2 Hepatomegaly with splenomegaly, not elsewhere classified; D64.9 Anemia, unspecified; Z79.82 Long term (current) use of aspirin; Z79.899 Other long term (current) drug therapy; Z98.51 Tubal ligation status; Z79.84 Long term (current) use of oral hypoglycemic drugs
CPT/HCPCS: 36415; 70450; 71045; 76700; 80048; 80053; 80305; 81003; 81025; 82009; 82140; 82150; 82550; 83036; 83605; 83690; 83735; 83880; 84100; 84436; 84443; 84479; 84484; 85025; 85610; 85730; 87081; 93005; 93880; 95816; 96372; 96374; 97110; 97116; 97530; 99285; J1885; J2405; J2550; J7030; J8597; Q0092

== ENCOUNTER 2018-03-15 14:39 | Inpatient (IN) | payer OTHER ==
[~2018-03-15] VITALS: Ht 162.6 cm; Wt 113.4 kg
[~2018-03-15 14:39] MED LIST changes: -ATOR20TA40 PO; -CIPR500T4 PO; +DIVA500E2 PO; -Divalproex Sodium PO; +LEVO0.155 PO; -MAG400 PO; +MECL-272 PO; +METF500T PO; -METR250T2 PO; -SYN.1 PO
[2018-03-15 15:18] VITALS: BP 128/77
[2018-03-15] MEDS ORDERED: KETOROLAC 30 MG/ML VIAL IVP ONE (16:00)
[2018-03-15 17:07] LABS: BASOPHILS % (AUTO) 0.5 % (0.0-2.0); EOSINOPHILS # (AUTO) 0.1 K/uL (0-0.4); HEMATOCRIT 40.6 % (36-48); HEMOGLOBIN 13.4 g/dL (12.0-16.0); LYMPHOCYTES # (AUTO) 2.7 K/uL (2.5-16.5); LYMPHOCYTES % (AUTO) 28.2 % (20.5-51.1); MEAN CORPUSCULAR HEMOGLOBIN 29 pg (27-31); MEAN CORPUSCULAR HGB CONC 33 g/dL (33-37); MEAN CORPUSCULAR VOLUME 86.3 fL (80-94); MONOCYTES # (AUTO) 0.5 K/uL (0.8-1.0); MONOCYTES % (AUTO) 5.5 % (1.7-9.3); NEUTROPHILS # (AUTO) 6.1 K/uL (1.8-7.7); NEUTROPHILS % (AUTO) 64.8 % (42.2-75.2); PLATELET COUNT (AUTO) 193 K/uL (140-450); RED BLOOD CELL COUNT(AUTO) 4.71 MIL/uL (4.20-5.40); RED CELL DISTRIBUTION WIDTH 13.9 % (11.6-13.7); WHITE BLOOD COUNT (AUTO) 9.4 K/uL (4.8-10.8)
[2018-03-15 17:40] LABS: ALBUMIN 3.3 g/dL (3.4-5.0); ANION GAP 12.2 (8-16); CARBON DIOXIDE 31.7 mmol/L (21-32); CREATININE 0.8 mg/dL (0.6-1.3); TOTAL BILIRUBIN 0.3 mg/dL (0.0-1.0)
[2018-03-15 17:43] LABS: POTASSIUM 2.9 mmol/L (3.5-5.1)
[2018-03-15] MEDS ORDERED: MAG SULF 2000 MG/WATER PREMIX 50 ML IV ONE (17:55)
[2018-03-15] MEDS ORDERED: KCL 20 MEQ/WATER INJ PREMIX 100 ML IV ONE (17:55)
[2018-03-15 18:03] LABS: PROTHROMBIN TIME 9.5 secs (10.8-13.4)
[2018-03-15 18:17] LABS: FREE T4 (FREE THYROXINE) 1.31 ng/dL (0.76-1.46); THYROID STIMULATING HORMONE 3.25 uIU/mL (0.34-3.74)
[2018-03-15] MEDS ORDERED: HYDROcodone/APAP 7.5/325 MG 1 TAB PO PRN (19:30)
[2018-03-15] MEDS ORDERED: ACETAMINOPHEN 325 MG TAB PO PRN (19:30)
[2018-03-15] MEDS ORDERED: DOCUSATE SODIUM 100 MG GELCAP PO PRN (19:30)
[2018-03-15] MEDS ORDERED: ONDANSETRON 4 MG/2 ML VIAL IM/IVP PRN (19:30)
[2018-03-15 20:13] LABS: CHOL/HDL RATIO 5.1 (1-4.5); FREE T4 (FREE THYROXINE) 1.29 ng/dL (0.76-1.46); MAGNESIUM 1.5 mg/dL (1.8-2.4); PHOSPHORUS 2.6 mg/dL (2.5-4.9)
[2018-03-15 20:33] VITALS: BP 138/72
[2018-03-15] MEDS: NACL 0.9% 1,000 ML IV SCH (21:54)
[2018-03-15 23:01] LABS: APPEARANCE,URINE CLOUDY (CLEAR); BILIRUBIN,URINE NEGATIVE (NEGATIVE); BLOOD, URINE NEGATIVE (NEGATIVE); COLOR,URINE YELLOW (YELLOW); LEUKOCYTE ESTERASE ,URINE NEGATIVE (NEGATIVE); NITRITE, URINE NEGATIVE (NEGATIVE); PH,URINE 7.5 (5.0-9.0); UGLUCOSE NEGATIVE (NEGATIVE)
[2018-03-15 23:04] LABS: BARBITURATE, URINE NEG. ng/ml (NEG <=200); BENZODIAZEPINE, URINE NEG. ng/mL (NEG <=200); CANNABINOID, URINE NEG. ng/mL (NEG <=50); COCAINE, URINE NEG. ng/mL (NEG <=300); OPIATE, URINE NEG. ng/mL (NEG <=2000); PHENCYCLIDINE SCREEN,URINE NEG. ng/mL (NEG <=25)
[2018-03-16 00:25] VITALS: BP 127/71
[2018-03-16] MEDS ORDERED: NITROGLYCERIN 0.4 MG TAB SL PRN (00:45)
[2018-03-16] MEDS ORDERED: DEXTROSE 50% 50 ML SYR IVP PRN (00:50)
[2018-03-16] MEDS ORDERED: POTASSIUM CHLORIDE 10 MEQ TABER PO SCH ×2 (01:00→12:00)
[2018-03-16] MEDS ORDERED: METOPROLOL 25 MG TAB PO SCH (01:00)
[2018-03-16] MEDS ORDERED: QUEtiapine FUMARATE 100 MG TAB PO SCH ×2 (01:00→21:00)
[2018-03-16] MEDS: NACL 0.9% 1,000 ML IV SCH ×3 (01:10→09:35)
[2018-03-16 04:00] VITALS: BP 104/67
[2018-03-16] MEDS: LEVOTHYROXINE 0.075 MG TAB PO SCH (06:07)
[2018-03-16] MEDS: BLOOD GLUCOSE MONITORING 1 DEV DEV FS SCH ×4 (06:08→20:24)
[2018-03-16] MEDS: INSULIN LISPRO SLIDING SCALE 100 UNITS/ML VIAL SUBQ PRN (06:11)
[2018-03-16] MEDS ORDERED: ECOTRIN 81 MG TABEC PO SCH (09:00)
[2018-03-16 09:04] VITALS: BP 142/55
[2018-03-16] MEDS: METOPROLOL 25 MG TAB PO SCH ×2 (09:34→21:00)
[2018-03-16] MEDS: LISINOPRIL 5 MG TAB PO SCH (09:35)
[2018-03-16] MEDS: CITALOPRAM 20 MG TAB PO SCH (09:35)
[2018-03-16] MEDS: ARIPiprazole 10 MG TAB PO SCH (09:36)
[2018-03-16] MEDS: metFORMIN 500 MG TAB PO SCH ×2 (09:36→18:37)
[2018-03-16] MEDS: ASPIRIN 81 MG TAB.CHEW PO SCH (09:36)
[2018-03-16 11:03] LABS: BASOPHILS % (AUTO) 0.3 % (0.0-2.0); EOSINOPHILS # (AUTO) 0.1 K/uL (0-0.4); HEMATOCRIT 35.3 % (36-48); HEMOGLOBIN 11.5 g/dL (12.0-16.0); LYMPHOCYTES # (AUTO) 1.9 K/uL (2.5-16.5); MEAN CORPUSCULAR HEMOGLOBIN 29 pg (27-31); MEAN CORPUSCULAR HGB CONC 33 g/dL (33-37); MEAN CORPUSCULAR VOLUME 87.2 fL (80-94); MONOCYTES # (AUTO) 0.4 K/uL (0.8-1.0); MONOCYTES % (AUTO) 5.3 % (1.7-9.3); NEUTROPHILS # (AUTO) 4.3 K/uL (1.8-7.7); NEUTROPHILS % (AUTO) 64.4 % (42.2-75.2); PLATELET COUNT (AUTO) 186 K/uL (140-450); RED BLOOD CELL COUNT(AUTO) 4.05 MIL/uL (4.20-5.40); RED CELL DISTRIBUTION WIDTH 14.5 % (11.6-13.7); WHITE BLOOD COUNT (AUTO) 6.7 K/uL (4.8-10.8)
[2018-03-16 11:21] LABS: ANION GAP 7.4 (8-16); CARBON DIOXIDE 32.5 mmol/L (21-32); CREATININE 0.6 mg/dL (0.6-1.3)
[2018-03-16 11:23] LABS: POTASSIUM 2.9 mmol/L (3.5-5.1)
[2018-03-16 12:00] VITALS: BP 134/73
[2018-03-16] MEDS ORDERED: POTASSIUM CHLORIDE 40 MEQ, LIDOCAINE MPF 1% - 5 mL VIAL 25 MG in NACL 0.9% 250 ML IV SCH (13:00)
[2018-03-16 16:00] VITALS: BP 102/51
[2018-03-16] MEDS ORDERED: ATORVASTATIN 20 MG TAB PO SCH (17:00)
[2018-03-16 19:56] VITALS: BP 118/39
[2018-03-17 00:15] VITALS: BP 117/58
[2018-03-17 04:29] VITALS: BP 107/47
[2018-03-17] MEDS: LEVOTHYROXINE 0.075 MG TAB PO SCH (05:55)
[2018-03-17] MEDS: BLOOD GLUCOSE MONITORING 1 DEV DEV FS SCH (05:57)
[2018-03-17] MEDS: INSULIN LISPRO SLIDING SCALE 100 UNITS/ML VIAL SUBQ PRN (05:59)
[2018-03-17] MEDS: NACL 0.9% 1,000 ML IV SCH (06:16)
[2018-03-17] MEDS ORDERED: PANTOPRAZOLE 40 MG TABEC PO SCH (06:30)
[2018-03-17 07:29] LABS: BASOPHILS % (AUTO) 0.2 % (0.0-2.0); EOSINOPHILS # (AUTO) 0.2 K/uL (0-0.4); EOSINOPHILS % (AUTO) 2.5 % (0.0-4.0); HEMATOCRIT 33.7 % (36-48); LYMPHOCYTES # (AUTO) 1.9 K/uL (2.5-16.5); LYMPHOCYTES % (AUTO) 26.4 % (20.5-51.1); MEAN CORPUSCULAR HEMOGLOBIN 29 pg (27-31); MEAN CORPUSCULAR HGB CONC 33 g/dL (33-37); MEAN CORPUSCULAR VOLUME 87.5 fL (80-94); MONOCYTES # (AUTO) 0.4 K/uL (0.8-1.0); MONOCYTES % (AUTO) 5.1 % (1.7-9.3); NEUTROPHILS # (AUTO) 4.8 K/uL (1.8-7.7); NEUTROPHILS % (AUTO) 65.8 % (42.2-75.2); PLATELET COUNT (AUTO) 169 K/uL (140-450); RED BLOOD CELL COUNT(AUTO) 3.84 MIL/uL (4.20-5.40); RED CELL DISTRIBUTION WIDTH 14.3 % (11.6-13.7); WHITE BLOOD COUNT (AUTO) 7.3 K/uL (4.8-10.8)
[2018-03-17 08:00] LABS: ANION GAP 10.3 (8-16); CARBON DIOXIDE 28.2 mmol/L (21-32); CREATININE 0.6 mg/dL (0.6-1.3); POTASSIUM 3.5 mmol/L (3.5-5.1)
[2018-03-17 08:11] LABS: MAGNESIUM 1.7 mg/dL (1.8-2.4); PHOSPHORUS 2.8 mg/dL (2.5-4.9)
[2018-03-17] MEDS: metFORMIN 500 MG TAB PO SCH (10:28)
[2018-03-17] MEDS: CITALOPRAM 20 MG TAB PO SCH (10:28)
[2018-03-17] MEDS: ASPIRIN 81 MG TAB.CHEW PO SCH (10:28)
[2018-03-17] MEDS: LISINOPRIL 5 MG TAB PO SCH (10:28)
[2018-03-17] MEDS: ARIPiprazole 10 MG TAB PO SCH (10:29)
[2018-03-17] MEDS: METOPROLOL 25 MG TAB PO SCH (10:29)
[2018-03-17 11:29] LABS: MAGNESIUM 1.8 mg/dL (1.8-2.4); PHOSPHORUS 2.8 mg/dL (2.5-4.9)
== END 2018-03-17 11:55 | disposition home or self-care (01) | DRG 392 ==
LOC: MED 14:39 → MTU 19:32
PROVIDERS: ADMIT General Practice; ATTEND General Practice
DX: K21.9 Gastro-esophageal reflux disease without esophagitis (principal); E44.1 Mild protein-calorie malnutrition; Z68.41 Body mass index [BMI] 40.0-44.9, adult; I69.351 Hemiplegia and hemiparesis following cerebral infarction affecting right dominant side; E83.42 Hypomagnesemia; E87.6 Hypokalemia; E03.9 Hypothyroidism, unspecified; F41.9 Anxiety disorder, unspecified; M25.562 Pain in left knee; E11.65 Type 2 diabetes mellitus with hyperglycemia; E78.2 Mixed hyperlipidemia; F20.9 Schizophrenia, unspecified; E66.01 Morbid (severe) obesity due to excess calories; Z79.84 Long term (current) use of oral hypoglycemic drugs; Z79.899 Other long term (current) drug therapy; Z79.82 Long term (current) use of aspirin; Z98.51 Tubal ligation status
CPT/HCPCS: 36415; 71045; 73562; 80048; 80053; 80305; 81003; 82150; 82948; 83036; 83690; 83735; 83880; 84100; 84439; 84443; 84479; 84484; 85025; 85379; 85610; 85730; 87081; 93005; 96374; 99285; J1815; J1885; J2001; J3475; J3480; J7030; Q0092

== ENCOUNTER 2019-01-14 02:40 | Emergency (ER) | payer OTHER, MEDICAID ==
[~2019-01-14] VITALS: Ht 157.5 cm; Wt 104.3 kg
[2019-01-14 02:40] VITALS: BP 138/82
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
[2019-01-14] MEDS ORDERED: NACL 0.9% 1,000 ML IV ONE (03:14)
[2019-01-14] MEDS ORDERED: METOCLOPRAMIDE 10 MG/2 ML INJ VIAL IVP ONE (03:15)
[2019-01-14] MEDS ORDERED: diphenhydrAMINE 50 MG/ML VIAL IVP ONE (03:15)
--- NOTE | 2019-01-14 03:15 | NUR ---
DR. FALK EVALUATING AT BEDSIDE.
--- NOTE | 2019-01-14 03:45 | NUR ---
ATTEMPTED TO START PIV X 4; UNSUCCESSFUL. CHARGE NURSE MADE AWARE.
--- NOTE | 2019-01-14 03:55 | NUR ---
CHARGE NURSE ATTEMPTING PIV AT BEDSIDE.
--- NOTE | 2019-01-14 04:03 | NUR ---
PT TAKEN TO CT VIA WC.
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
[2019-01-14] MEDS ORDERED: KETOROLAC 60 MG/2 ML VIAL IM ONE (04:15)
--- NOTE | 2019-01-14 04:15 | NUR ---
DR. FALK MADE AWARE OF PT REFUSING CT.
--- NOTE | 2019-01-14 04:18 | NUR ---
PIV PLACEMENT UNSUCCESSFUL. PT REFUSING TO BE POKED FURTHER. DR. FALK MADE AWARE. NEW ORDERS RECEIVED.
--- NOTE | 2019-01-14 04:23 | NUR ---
BENADRYL AND REGLAN ALREADY PULLED IN SYRINGE. PT REFUSING IV MEDICATION. WASTED WITH PARTS CLERK PLANT MAINTENANCELINSEY.
--- NOTE | 2019-01-14 04:24 | NUR ---
PT GIVEN 60 MG IM TORADOL FOR 10/ KENDALL. WILL REASSESS.
--- NOTE | 2019-01-14 04:50 | NUR ---
PT FOUND TO BE SLEEPING IN BED WITH VSS. AROUSABLE TO VERBAL STIMULI. PT REPORTS HEAD FEELS BETTER; 5/10 PAIN.
--- NOTE | 2019-01-14 04:55 | NUR ---
CALLED MOTHERMARISELA TO [employer] [facility]RAW[facility] PT. ETA 15-20 MINS.
[2019-01-14 05:14] VITALS: BP 132/76
--- NOTE | 2019-01-14 05:14 | NUR ---
Patient discharged with v/s stable. Written and verbal after care instructions given and explained. Patient alert, oriented and verbalized understanding of instructions. Wheel Chair assisted to car. All questions addressed prior to discharge. ID band removed. Patient advised to follow up with PMD. Rx of Motrin given. Patient educated on indication of medication including possible reaction and side effects. Opportunity to ask questions provided and answered.
--- NOTE | 2019-01-14 05:20 | NUR ---
PT'S MOTHER CAME TO [employer] OPERATIONS SUPERINTENDENT PT. PT TAKEN TO CAR VIA WC.
== END 2019-01-14 05:14 | disposition home or self-care (01) ==
LOC: MED 02:40
DX: R51 Headache (principal); Z86.73 Personal history of transient ischemic attack (TIA), and cerebral infarction without residual deficits; E11.9 Type 2 diabetes mellitus without complications; I10 Essential (primary) hypertension; E07.9 Disorder of thyroid, unspecified; Z98.890 Other specified postprocedural states; Z79.82 Long term (current) use of aspirin; Z79.84 Long term (current) use of oral hypoglycemic drugs; Z79.899 Other long term (current) drug therapy
CPT/HCPCS: 81002; 81025; 96372; 99283; J1200; J1885; J2765

== ENCOUNTER 2020-08-09 13:23 | Emergency (ER) | payer OTHER, MEDICAID ==
[~2020-08-09] VITALS: Ht 162.6 cm; Wt 104.3 kg
[~2020-08-09 13:23] MED LIST changes: -MECL-272 PO; +MECL-311 PO
--- NOTE | 2020-08-09 13:23 | NUR ---
Patient BIBA BLS accompanied by [place] [employer], transferred to bed 5. RN evaluating the patient at bedside.
[2020-08-09 13:30] VITALS: BP 142/70
--- NOTE | 2020-08-09 13:39 | NUR ---
40 Y/O F BIBA FROM MOTHER'S HOUSE, PT STATES HEARING VOICES TELLING HER TO CUT HERSELF, PT IS NOW HAVING 10/10 PAIN ON HER L HAND AND HEADACHE. PT HAS L HAND LAC. PT USES WALKER TO AMBULATE. PD ARRIVED WITH 5150 HOLD PAPERWORK. PT A&OX3 TO PERSON, PLACE, SITUATION BUT NOT TIME. PMH: SCHIZO, CVA, L SIDE DEFICIT NKA
--- NOTE | 2020-08-09 14:07 | NUR ---
RECEIVED CALL FROM PT'S MOTHER MARISELA. UPDATED ON PT STATES, ALL QUESTIONS AND CONCERNS ANSWERED AT THIS TIME.
--- NOTE | 2020-08-09 14:15 | NUR ---
LAB AT BEDSIDE
[2020-08-09 14:26] LABS: APPEARANCE,URINE CLEAR (CLEAR); BILIRUBIN,URINE NEGATIVE (NEGATIVE); BLOOD, URINE NEGATIVE (NEGATIVE); COLOR,URINE YELLOW (YELLOW); LEUKOCYTE ESTERASE ,URINE NEGATIVE (NEGATIVE); NITRITE, URINE NEGATIVE (NEGATIVE); PH,URINE 5.5 (5.0-9.0); UGLUCOSE NEGATIVE (NEGATIVE)
[2020-08-09 14:26] LABS: BASOPHILS % (AUTO) 0.4 % (0.0-2.0); EOSINOPHILS % (AUTO) 0.8 % (0.0-4.0); HEMATOCRIT 32.8 % (36-48); LYMPHOCYTES # (AUTO) 1.5 K/uL (2.5-16.5); MEAN CORPUSCULAR HEMOGLOBIN 29 pg (27-31); MEAN CORPUSCULAR HGB CONC 33 g/dL (33-37); MEAN CORPUSCULAR VOLUME 86.9 fL (80-94); MONOCYTES # (AUTO) 0.5 K/uL (0.8-1.0); MONOCYTES % (AUTO) 8.6 % (1.7-9.3); NEUTROPHILS # (AUTO) 3.4 K/uL (1.8-7.7); NEUTROPHILS % (AUTO) 63.2 % (42.2-75.2); PLATELET COUNT (AUTO) 154 K/uL (140-450); RED BLOOD CELL COUNT(AUTO) 3.78 MIL/uL (4.20-5.40); RED CELL DISTRIBUTION WIDTH 14.9 % (11.6-13.7); WHITE BLOOD COUNT (AUTO) 5.4 K/uL (4.8-10.8)
[2020-08-09 14:41] LABS: ALBUMIN 3.6 g/dL (3.4-5.0); ANION GAP 13.8 (8-16); ASPARTATE AMINOTRANSFERASE 11 U/L (15-37); CARBON DIOXIDE 28.4 mmol/L (21-32); CHLORIDE 103 mmol/L (98-107); CREATININE 0.8 mg/dL (0.6-1.3); GFR ARICAN-AMERICAN 103 mL/min (>90); GLUCOSE 116 mg/dL (74-106); POTASSIUM 4.2 mmol/L (3.5-5.1); SALICYLATE < 2.8 mg/dL (2.8-20.0); SODIUM SERUM 141 mmol/L (136-145); TOTAL BILIRUBIN 0.2 mg/dL (0.0-1.0); UREA NITROGEN, BLOOD 21 mg/dL (7-18)
[2020-08-09 14:42] LABS: ACETAMINOPHEN < 0.5 ug/ml (10-30)
[2020-08-09 14:49] LABS: BARBITURATE, URINE NEGATIVE ng/ml (NEG <=200); BENZODIAZEPINE, URINE NEGATIVE ng/mL (NEG <=200); CANNABINOID, URINE NEGATIVE ng/mL (NEG <=50); COCAINE, URINE NEGATIVE ng/mL (NEG <=300)
[2020-08-09 14:50] LABS: OPIATE, URINE NEGATIVE ng/mL (NEG <=2000); PHENCYCLIDINE SCREEN,URINE NEGATIVE ng/mL (NEG <=25)
--- NOTE | 2020-08-09 15:01 | NUR ---
NOVEL AND AMANDA SWABS COLLECTED AND SENT TO LAB
[2020-08-09] MEDS ORDERED: ONDANSETRON 4 MG ODT PO ONE (15:15)
--- NOTE | 2020-08-09 17:00 | NUR ---
PT C/O OF 6/10 BIL[address] LOWER LEG PAIN. DR GALLEGOS MADE AWARE. ORDERS RECEIVED.
[2020-08-09] MEDS ORDERED: ACETAMINOPHEN EXTRA STRENGTH 500 MG TAB PO ONE (17:10)
--- NOTE | 2020-08-09 17:19 | NUR ---
SPOKE WITH ANODE ADJUSTER GABY WHO RUNS [facility] WHERE PATIENT LIVES. SHE WOULD LIKE TO BE UPDATED WITH PATIENT IS TRANSFERRED. [facility] NAME= FREDDY GRIFFIN PHONE NUMBER- [phone]
--- NOTE | 2020-08-09 17:36 | NUR ---
DINNER TRAY PROVIDED. PT EATING QUIETLY.
--- NOTE | 2020-08-09 19:08 | NUR ---
REPORT GIVEN TO JIMMIE RN FOR CONTINUITY OF CARE
--- NOTE | 2020-08-09 19:19 | NUR ---
PT AWAKE IN SEMI GUZMAN'S, COMPLAINING OF NOT BEING ABLE TO BREATHE. RELAXATION TECHNIQUES WERE DONE AND PATIENT CALMED DOWN. PATIENT 100% OXYGEN SATURATION.
--- NOTE | 2020-08-09 19:26 | NUR ---
Mother called for updates. Mother's name is Arlet #[id number]
--- NOTE | 2020-08-09 19:30 | NUR ---
Called mother of patient name Arlet about medications patient takes to verify.
[2020-08-09] MEDS ORDERED: MECLIZINE 25 MG TAB PO PRN (19:45)
--- NOTE | 2020-08-09 19:50 | NUR ---
ESEQUIEL speaking with patient about medication.
--- NOTE | 2020-08-09 20:19 | NUR ---
Patient appears to be resting comfortably in bed in semi fowlers. no acute distress noted.
[2020-08-09] MEDS: QUEtiapine FUMARATE 100 MG TAB PO SCH (21:13)
[2020-08-09] MEDS: DIVALPROEX 500 MG TABEC PO SCH (21:14)
--- NOTE | 2020-08-09 21:45 | NUR ---
Patient appears to be resting comfortably in bed. Semi fowlers, even respirations. No acute distress noted.
--- NOTE | 2020-08-09 23:25 | NUR ---
CHANGED PATIENT DIAPER. PT REPORTS BEING INCONTINENT AT TIMES.
--- NOTE | 2020-08-10 00:06 | NUR ---
Pending PCR before possible placement at [facility]. Will monitor labs
--- NOTE | 2020-08-10 02:20 | NUR ---
Patient appears to be resting comfortably in bed. Respirations even and unlabored. No signs of acute distress
[2020-08-10] MEDS ORDERED: CRUSHER, PILL MC ONE (06:41)
[2020-08-10] MEDS: LEVOTHYROXINE 0.025 MG TAB PO SCH (06:47)
--- NOTE | 2020-08-10 07:46 | NUR ---
PT BEDBATH WAS GIVEN, HAIR WAS WASHED, BODY WAS WASHED, PT BRUSHED HER TEETH AND GIVEN NEW DIAPER, LINENS AND GOWN. PT RESTING COMFORTABLY AND EATING.
[2020-08-10] MEDS: metFORMIN 500 MG TAB PO SCH ×2 (08:18→16:36)
[2020-08-10] MEDS: ARIPiprazole 10 MG TAB PO SCH (08:18)
[2020-08-10] MEDS: ASPIRIN 81 MG TAB.CHEW PO SCH (08:18)
[2020-08-10] MEDS: CITALOPRAM 20 MG TAB PO SCH (08:19)
[2020-08-10] MEDS: DIVALPROEX 500 MG TABEC PO SCH ×2 (08:19→21:15)
--- NOTE | 2020-08-10 08:28 | NUR ---
PT PROVIDED WITH PORTABLE TO SPEAK WITH HER MOTHER MARISELA.
[2020-08-10] MEDS ORDERED: ACETAMINOPHEN 325 MG TAB PO ONE (09:15)
--- NOTE | 2020-08-10 11:04 | NUR ---
Report received from Lesley MIDDLETON for continuity of care
--- NOTE | 2020-08-10 11:59 | NUR ---
[facility] notified ER charge nurse Jimmie MIDDLETON, At this time admission for [facility] will be rescheduled in the AM , [facility] hothouse worker Aileen MIDDLETON also aware. Addendum: 08/11/20 at 0153 by [email or web address] 08/11/20 01:00 [facility] notified ER charge nurse Jimmie MIDDLETON ,At this time admission to [facility] will be reschedul in the AM , [facility] maintenance worker house trailer Aileen MIDDLETON also aware.
--- NOTE | 2020-08-10 12:45 | NUR ---
PT AMBULATED TO RESTROOM WITH 1:1 RN MONITORING
[2020-08-10] MEDS ORDERED: ACETAMINOPHEN EXTRA STRENGTH 500 MG TAB PO ONE (13:20)
--- NOTE | 2020-08-10 13:40 | NUR ---
DR PAK AT BEDSIDE EXAMINING PT
[2020-08-10] MEDS ORDERED: SUCRALFATE 1 GM TAB PO SCH (13:45)
[2020-08-10] MEDS ORDERED: ALUMINUM HYD/MAG/SIMETHICONE 30 ML, DICYCLOMINE HCL LIQUID 20 MG, LIDOCAINE VISCOUS 2% ... PO ONE ×3 (13:45)
--- NOTE | 2020-08-10 13:48 | NUR ---
LAB AT BEDSIDE
[2020-08-10] MEDS ORDERED: LIDOCAINE VISCOUS 2% 20 ML UDC ONE (13:49)
[2020-08-10] MEDS ORDERED: ALUMINUM HYD/MAG/SIMETHICONE 30 ML UDC ONE (13:49)
[2020-08-10] MEDS ORDERED: DICYCLOMINE HCL LIQUID 10 MG/5 ML UDC ONE (13:49)
--- NOTE | 2020-08-10 15:05 | NUR ---
XRAY AT BEDSIDE
[2020-08-10] MEDS ORDERED: HYDROcodone/APAP 5/325 MG 1 TAB TAB PO ONE (15:10)
--- NOTE | 2020-08-10 17:20 | NUR ---
Patient has eyes closed, resting in bed. Vital Signs within normal limits. Respirations even and unlabored. Chest rise is symmetrical. Will continue to monitor.
--- NOTE | 2020-08-10 18:37 | NUR ---
PT EATING DINNER PROVIDED
--- NOTE | 2020-08-10 18:40 | NUR ---
PT SPEAKING WITH MOTHER ON THE PHONE
--- NOTE | 2020-08-10 19:13 | NUR ---
Pt report given to OLEG MIDDLETON. Transfer of care at this time.
--- NOTE | 2020-08-10 19:14 | NUR ---
REPORT RECEIVED FROM STEVEN MIDDLETON FOR CONTINUITY OF CARE. PT IN BED WITH NO REQUESTS AT THIS TIME. SAFETY MEASURES IN PLACE, SITTER AT BEDSIDE. WILL CONTINUE TO MONITOR.
[2020-08-10] MEDS: QUEtiapine FUMARATE 100 MG TAB PO SCH (21:15)
--- NOTE | 2020-08-10 21:23 | NUR ---
PERINEAL CARE AND DIAPER CHANGE DONE AT BEDSIDE.
--- NOTE | 2020-08-10 22:27 | NUR ---
PT RESTING WITH EYES CLOSED AND HOB ELEVATED. PT NOT IN DISTRESS. VISIBLE CHEST RISE AND FALL NOTED. SAFETY MEASURES IN PLACE. WILL CONTINUE TO MONITOR.
--- NOTE | 2020-08-10 23:55 | NUR ---
[facility] CALLED AND GAVE REPORT TO BRAYAN MIDDLETON. PT WILL BE GOING TO 102 BED 2, ADMITTING MD IS DR. GONZÁLES
--- NOTE | 2020-08-11 00:50 | NUR ---
S/W GERRY AT [employer] WHO WAS INQURING ABOUT LENGTHY PICKUP ETA FOR PT. PER GERRY HE WOULD ASSIST WITH ARRANGING TRANSPORTATION FOR AN EARLIER ETA.
--- NOTE | 2020-08-11 01:05 | NUR ---
S/W GERRY AT [facility] WHO STATED DUE TO EXTENDED ETA OF PICKUP, [facility] IS RESCINDING ACCPETANCE AND MAY HAVE AVAILABLE IN THE MORNING.
--- NOTE | 2020-08-11 01:15 | NUR ---
S/W LISA, PRIMARY HEALTH ORGANISATION MANAGER, AT [facility] WHO STATED PT IS STILL ACCEPTED TO FACILITY BUT WILL BE TAKEN ON AM SHIFT INSTEAD OF TONIGHT.
--- NOTE | 2020-08-11 02:05 | NUR ---
PT ASLEEP. VISIBLE CHEST RISE AND FALL NOTED. PT NOT IN DISTRESS. PT KEPT COMFORTABLE. SAFETY MEASURES IN PLACE. WILL CONTINUE TO MONITOR.
[2020-08-11] MEDS ORDERED: ACETAMINOPHEN 650 MG/20.3 ML UDC PO ONE (03:20)
--- NOTE | 2020-08-11 03:40 | NUR ---
PERINEAL CARE AND DIAPER CHANGE DONE. PT TOLERATED WELL
--- NOTE | 2020-08-11 05:30 | NUR ---
PT ASLEEP. NO DISTRESS OR DISCOMFORT NOTED. VISIBLE CHEST RISE AND FALL NOTED. PT KEPT COMFORTABLE. SITTER AT BEDSIDE. WILL CONTINUE TO MONITOR.
[2020-08-11] MEDS: LEVOTHYROXINE 0.025 MG TAB PO SCH (06:44)
--- NOTE | 2020-08-11 07:27 | NUR ---
RECEIVED BEDSIDE REPORT FROM UTILITY HAND NURSE OLEG MIDDLETON FOR CONTINUOUS OF CARE.
--- NOTE | 2020-08-11 07:30 | NUR ---
REPORT GIVEN TO FREDDY MIDDLETON FOR CONTINUITY OF CARE
[2020-08-11] MEDS: ARIPiprazole 10 MG TAB PO SCH (08:11)
[2020-08-11] MEDS: DIVALPROEX 500 MG TABEC PO SCH (08:11)
[2020-08-11] MEDS: ASPIRIN 81 MG TAB.CHEW PO SCH (08:11)
[2020-08-11] MEDS: metFORMIN 500 MG TAB PO SCH (08:11)
[2020-08-11] MEDS: CITALOPRAM 20 MG TAB PO SCH (08:12)
--- NOTE | 2020-08-11 08:14 | NUR ---
DUE MEDICATIONS GIVEN, PT BLOOD SUGAR 112, PT TOLERATED WELL, PT EATING BREAKFAST, WILL CONTINUE TO MONITOR.
--- NOTE | 2020-08-11 08:37 | NUR ---
PICKED UP BY [facility] LEFT ON A GURNEY, STABLE CONDITION.
[2020-08-11 08:41] VITALS: BP 120/53
--- NOTE | 2020-08-11 11:00 | NUR ---
CALLED AND SPOKE TO CUSTOMS INSPECTOR UNIQUE AND UPDATED HER THAT PT WAS TRANSFERRED TO [facility].
== END 2020-08-11 08:37 ==
LOC: MED 13:23
DX: R45.851 Suicidal ideations (principal); Z20.822 Contact with and (suspected) exposure to COVID-19; F39 Unspecified mood [affective] disorder; R44.0 Auditory hallucinations; R44.1 Visual hallucinations; E11.9 Type 2 diabetes mellitus without complications; I10 Essential (primary) hypertension; F20.9 Schizophrenia, unspecified; Z02.89 Encounter for other administrative examinations
CPT/HCPCS: 36415; 71045; 80053; 80305; 81003; 81025; 82948; 84484; 85025; 87426; 93005; 99285; G0480; G0482; J8597; Q0162; U0003